=== PATIENT | male | born 1960 | race Caucasian/White ===

== ENCOUNTER → 2016-09-21 | Outpatient (REF) | payer BC ==
[~2016-09-21] MED LIST: BENZ200C44 PO; GLUC500T53 PO; GUAISYP9 PO; LEVA1.25 INH; PRAV1TAB39 PO; PRED10PA PO; PRED20TA PO; PROA1AER INH; VITA500T3 PO
[2016-09-21 12:10] LABS: MEAN CORPUSCULAR HEMOGLOBIN 32.4 pg (27.0-33.0); MEAN CORPUSCULAR HGB CONC 33.7 g/dl (32.0-36.5); MEAN CORPUSCULAR VOLUME 96.2 fl (80.0-96.0); RED CELL DISTRIBUTION WIDTH 12.2 % (11.5-14.5); WHITE BLOOD COUNT 4.7 K/mm3 (4.0-10.0)
[2016-09-21 12:30] LABS: ALBUMIN 3.6 GM/DL (3.2-5.2); ALBUMIN/GLOBULIN RATIO 1.13 (1.00-1.93); ALKALINE PHOSPHATASE 69 U/L (45-117); ALT/SGPT 35 U/L (12-78); ANION GAP 6 MEQ/L (8-16); AST/SGOT 18 U/L (15-37); BILIRUBIN,TOTAL 0.6 MG/DL (0.2-1.0); BLOOD UREA NITROGEN 15 MG/DL (7-18); CALCIUM LEVEL 9.1 MG/DL (8.5-10.1); CARBON DIOXIDE LEVEL 29 MEQ/L (21-32); CHLORIDE LEVEL 106 MEQ/L (98-107); CHOLESTEROL LEVEL 155 MG/DL (<200); CREATININE FOR GFR 1.01 MG/DL (0.70-1.30); FREE T4 1.04 NG/DL (0.76-1.46); GLOMERULAR FILTRATION RATE > 60.0 (>56); GLUCOSE, FASTING 100 MG/DL (70-105); POTASSIUM SERUM 4.7 MEQ/L (3.5-5.1); SODIUM LEVEL 141 MEQ/L (136-145); TOTAL PROTEIN 6.8 GM/DL (6.4-8.2); TRIGLYCERIDES LEVEL 80 MG/DL (<150)
== END ==
LOC: M LABDRAW1 11:15
PROVIDERS: ATTEND Family Medicine
DX: E78.5 Hyperlipidemia, unspecified (principal); Z86.711 Personal history of pulmonary embolism

== ENCOUNTER → 2016-10-19 | Outpatient (REF) | payer BC | LOC: M LABDRAW1 11:45 | PROVIDERS: ATTEND Internal Medicine Cardiovascular Disease | DX: R06.02 Shortness of breath (principal) ==

== ENCOUNTER → 2017-07-27 | Outpatient (REF) | payer BC ==
[2017-07-27 10:09] LABS: HEMATOCRIT 46.5 % (42.0-52.0); HEMOGLOBIN 15.6 g/dl (14.0-18.0); MEAN CORPUSCULAR HEMOGLOBIN 31.5 pg (27.0-33.0); MEAN CORPUSCULAR HGB CONC 33.5 g/dl (32.0-36.5); MEAN CORPUSCULAR VOLUME 93.8 fl (80.0-96.0); PLATELET COUNT, AUTOMATED 250 10^3/uL (150-450); RED BLOOD COUNT 4.96 10^6/uL (4.30-6.10); RED CELL DISTRIBUTION WIDTH 11.9 % (11.5-14.5); WHITE BLOOD COUNT 5.1 10^3/uL (4.0-10.0)
[2017-07-27 10:50] LABS: ALBUMIN 3.8 GM/DL (3.2-5.2); ALBUMIN/GLOBULIN RATIO 1.12 (1.00-1.93); ALKALINE PHOSPHATASE 77 U/L (45-117); ALT/SGPT 42 U/L (12-78); ANION GAP 7 MEQ/L (8-16); AST/SGOT 14 U/L (7-37); BILIRUBIN,TOTAL 0.5 MG/DL (0.2-1.0); BLOOD UREA NITROGEN 18 MG/DL (7-18); CALCIUM LEVEL 8.9 MG/DL (8.5-10.1); CARBON DIOXIDE LEVEL 28 MEQ/L (21-32); CHLORIDE LEVEL 107 MEQ/L (98-107); CHOLESTEROL LEVEL 146 MG/DL (<200); CHOLESTEROL RISK RATIO 3.244 (<5); CPK CREATINE PHOSPHOKINASE 45 U/L (39-308); CREATININE FOR GFR 0.98 MG/DL (0.70-1.30); FREE T4 0.94 NG/DL (0.76-1.46); GLOMERULAR FILTRATION RATE > 60.0 (>56); GLUCOSE, FASTING 102 MG/DL (70-100); HDL CHOLESTEROL 45 MG/DL (>40); LDL CHOLESTEROL 86.8 MG/DL (<100); NON-HDL-C 101 MG/DL; POTASSIUM SERUM 4.7 MEQ/L (3.5-5.1); SODIUM LEVEL 142 MEQ/L (136-145); TOTAL PROTEIN 7.2 GM/DL (6.4-8.2); TRIGLYCERIDES LEVEL 71 MG/DL (<150)
== END ==
LOC: M LABDRAW1 09:42
DX: E78.5 Hyperlipidemia, unspecified (principal); Z86.711 Personal history of pulmonary embolism
CPT/HCPCS: 82550

== ENCOUNTER → 2018-03-06 | Outpatient (REF) | payer BC ==
[2018-03-06 12:30] LABS: ALBUMIN 3.7 GM/DL (3.2-5.2); ALBUMIN/GLOBULIN RATIO 1.09 (1.00-1.93); ALKALINE PHOSPHATASE 67 U/L (45-117); ALT/SGPT 37 U/L (12-78); ANION GAP 7 MEQ/L (8-16); AST/SGOT 19 U/L (7-37); BILIRUBIN,TOTAL 0.6 MG/DL (0.2-1.0); BLOOD UREA NITROGEN 17 MG/DL (7-18); CALCIUM LEVEL 8.8 MG/DL (8.5-10.1); CARBON DIOXIDE LEVEL 28 MEQ/L (21-32); CHLORIDE LEVEL 106 MEQ/L (98-107); CHOLESTEROL LEVEL 166 MG/DL (<200); CHOLESTEROL RISK RATIO 4.048 (<5); CREATININE FOR GFR 0.99 MG/DL (0.70-1.30); GLOMERULAR FILTRATION RATE > 60.0 (>56); GLUCOSE, FASTING 99 MG/DL (70-100); HDL CHOLESTEROL 41 MG/DL (>40); IRON (FE) 118 UG/DL (65-175); LDL CHOLESTEROL 102 MG/DL (<100); MAGNESIUM LEVEL 2.2 MG/DL (1.8-2.4); NON-HDL-C 125 MG/DL; POTASSIUM SERUM 4.5 MEQ/L (3.5-5.1); SODIUM LEVEL 141 MEQ/L (136-145); TOTAL PROTEIN 7.1 GM/DL (6.4-8.2); TRIGLYCERIDES LEVEL 113 MG/DL (<150)
[2018-03-06 12:36] LABS: ESTIMATED AVERAGE GLUCOSE 111 MG/DL (60-110); HEMOGLOBIN A1c 5.5 %
[2018-03-06 12:50] LABS: HEMATOCRIT 44.2 % (42.0-52.0); HEMOGLOBIN 14.8 g/dl (13.5-17.5); MEAN CORPUSCULAR HGB CONC 33.5 g/dl (32.0-36.5); MEAN CORPUSCULAR VOLUME 95.7 fl (80.0-96.0); PLATELET COUNT, AUTOMATED 216 10^3/uL (150-450); RED BLOOD COUNT 4.62 10^6/uL (4.30-6.10); WHITE BLOOD COUNT 4.9 10^3/uL (4.0-10.0)
[2018-03-06 13:14] LABS: APPEARANCE, URINE HAZY (CLEAR); BACTERIA, URINE AUTO NEGATIVE (NEGATIVE); BILIRUBIN, URINE AUTO NEGATIVE (NEGATIVE); BLOOD, URINE BLOOD 1+ (NEGATIVE); COLOR, URINE YELLOW (YELLOW); GLUCOSE, URINE (UA) AUTO NEGATIVE (NEGATIVE); KETONE, URINE AUTO NEGATIVE (NEGATIVE); LEUKOCYTE ESTERASE, URINE AUTO NEGATIVE (NEGATIVE); MUCUS, URINE SMALL (NEGATIVE); NITRITE, URINE AUTO NEGATIVE (NEGATIVE); PROTEIN, URINE AUTO NEGATIVE (NEGATIVE); RBC, URINE AUTO 1 /HPF (0-3); SPECIFIC GRAVITY URINE AUTO 1.025 (1.002-1.035); SQUAMOUS EPITHELIAL CELL UR AU 0 /HPF (0-6); UROBILINOGEN, URINE AUTO 0.2 mg/dL (0.0-2.0); WBC, URINE AUTO 1 /HPF (0-3)
[2018-03-06 13:45] LABS: ERYTHROCYTE SEDIMENTATION RATE 12 mm/hr (0-20)
[2018-03-08 00:08] LABS: PSA % FREE 16.8 % (.); PSA FREE 0.79 ng/mL; PSA TOTAL 4.7 ng/mL (0.0-4.0)
== END ==
LOC: M LABDRAW1 09:37
DX: E78.5 Hyperlipidemia, unspecified (principal); K75.81 Nonalcoholic steatohepatitis (NASH); G43.009 Migraine without aura, not intractable, without status migrainosus
CPT/HCPCS: 83540

== ENCOUNTER → 2018-06-15 | Outpatient (REF) | payer BC ==
[~2018-06-15] MED LIST changes: -BENZ200C44 PO; +BENZ200C70 PO; -PROA1AER INH; +PROAAER10 INH
[2018-06-15 13:27] LABS: HEMATOCRIT 45.1 % (42.0-52.0); HEMOGLOBIN 15.3 g/dl (13.5-17.5); MEAN CORPUSCULAR HEMOGLOBIN 32.5 pg (27.0-33.0); MEAN CORPUSCULAR HGB CONC 33.9 g/dl (32.0-36.5); MEAN CORPUSCULAR VOLUME 95.8 fl (80.0-96.0); PLATELET COUNT, AUTOMATED 208 10^3/uL (150-450); RED BLOOD COUNT 4.71 10^6/uL (4.30-6.10); WHITE BLOOD COUNT 5.2 10^3/uL (4.0-10.0)
[2018-06-15 13:31] LABS: APPEARANCE, URINE CLEAR (CLEAR); BACTERIA, URINE AUTO NEGATIVE (NEGATIVE); BILIRUBIN, URINE AUTO NEGATIVE (NEGATIVE); BLOOD, URINE BLOOD NEGATIVE (NEGATIVE); COLOR, URINE YELLOW (YELLOW); GLUCOSE, URINE (UA) AUTO NEGATIVE (NEGATIVE); KETONE, URINE AUTO NEGATIVE (NEGATIVE); LEUKOCYTE ESTERASE, URINE AUTO NEGATIVE (NEGATIVE); MUCUS, URINE SMALL (NEGATIVE); NITRITE, URINE AUTO NEGATIVE (NEGATIVE); PROTEIN, URINE AUTO NEGATIVE (NEGATIVE); RBC, URINE AUTO 0 /HPF (0-3); SPECIFIC GRAVITY URINE AUTO 1.024 (1.002-1.035); SQUAMOUS EPITHELIAL CELL UR AU 0 /HPF (0-6); UROBILINOGEN, URINE AUTO 0.2 mg/dL (0.0-2.0); WBC, URINE AUTO 2 /HPF (0-3)
[2018-06-15 13:39] LABS: ALBUMIN 3.7 GM/DL (3.2-5.2); ALT/SGPT 40 U/L (12-78); BILIRUBIN,TOTAL 0.5 MG/DL (0.2-1.0); BLOOD UREA NITROGEN 17 MG/DL (7-18); CALCIUM LEVEL 8.8 MG/DL (8.5-10.1); CARBON DIOXIDE LEVEL 28 MEQ/L (21-32); CHLORIDE LEVEL 107 MEQ/L (98-107); CHOLESTEROL LEVEL 164 MG/DL (<200); CHOLESTEROL RISK RATIO 3.565 (<5); CREATININE FOR GFR 1.02 MG/DL (0.70-1.30); GLOMERULAR FILTRATION RATE > 60.0 (>56); GLUCOSE, FASTING 103 MG/DL (70-100); HDL CHOLESTEROL 46 MG/DL (>40); IRON (FE) 104 UG/DL (65-175); LDL CHOLESTEROL 98 MG/DL (<100); MAGNESIUM LEVEL 2.1 MG/DL (1.8-2.4); NON-HDL-C 118 MG/DL; POTASSIUM SERUM 4.4 MEQ/L (3.5-5.1); SODIUM LEVEL 141 MEQ/L (136-145); TOTAL PROTEIN 6.9 GM/DL (6.4-8.2); TRIGLYCERIDES LEVEL 98 MG/DL (<150)
[2018-06-15 14:12] LABS: ERYTHROCYTE SEDIMENTATION RATE 6 mm/hr (0-20)
[2018-06-17 00:45] LABS: PSA % FREE 16.5 % (.); PSA FREE 0.76 ng/mL; PSA TOTAL 4.6 ng/mL (0.0-4.0)
== END ==
LOC: M LABDRAW1 12:22 → M LAB REF 12:22
PROVIDERS: ATTEND Family Medicine
DX: E78.5 Hyperlipidemia, unspecified (principal); K75.81 Nonalcoholic steatohepatitis (NASH); G43.009 Migraine without aura, not intractable, without status migrainosus

== ENCOUNTER → 2018-08-08 | Outpatient (REF) | payer BC ==
[2018-08-09 19:36] LABS: PSA % FREE 15.2 % (.); PSA FREE 0.64 ng/mL; PSA TOTAL 4.2 ng/mL (0.0-4.0)
== END ==
LOC: M LABDRAW1 09:00
PROVIDERS: ATTEND Specialist
DX: R97.20 Elevated prostate specific antigen [PSA] (principal)

== ENCOUNTER → 2018-12-05 | Outpatient (REF) | payer BC ==
[2018-12-05 10:06] LABS: HEMATOCRIT 43.9 % (42.0-52.0); MEAN CORPUSCULAR HEMOGLOBIN 33.5 pg (27.0-33.0); MEAN CORPUSCULAR HGB CONC 34.2 g/dl (32.0-36.5); PLATELET COUNT, AUTOMATED 201 10^3/uL (150-450); RED BLOOD COUNT 4.48 10^6/uL (4.30-6.10); WHITE BLOOD COUNT 4.2 10^3/uL (4.0-10.0)
[2018-12-05 10:19] LABS: ALBUMIN 3.7 GM/DL (3.2-5.2); ALT/SGPT 34 U/L (12-78); BILIRUBIN,TOTAL 0.6 MG/DL (0.2-1.0); BLOOD UREA NITROGEN 21 MG/DL (7-18); CALCIUM LEVEL 9.1 MG/DL (8.5-10.1); CARBON DIOXIDE LEVEL 29 MEQ/L (21-32); CHLORIDE LEVEL 108 MEQ/L (98-107); CHOLESTEROL LEVEL 143 MG/DL (<200); CHOLESTEROL RISK RATIO 3.042 (<5); CREATININE FOR GFR 0.89 MG/DL (0.70-1.30); GLOMERULAR FILTRATION RATE > 60.0 (>56); GLUCOSE, FASTING 102 MG/DL (70-100); HDL CHOLESTEROL 47 MG/DL (>40); LDL CHOLESTEROL 78 MG/DL (<100); MAGNESIUM LEVEL 2.3 MG/DL (1.8-2.4); NON-HDL-C 96 MG/DL; POTASSIUM SERUM 4.4 MEQ/L (3.5-5.1); SODIUM LEVEL 140 MEQ/L (136-145); TRIGLYCERIDES LEVEL 90 MG/DL (<150)
[2018-12-05 10:20] LABS: APPEARANCE, URINE CLEAR (CLEAR); BACTERIA, URINE AUTO NEGATIVE (NEGATIVE); BILIRUBIN, URINE AUTO NEGATIVE (NEGATIVE); BLOOD, URINE BLOOD NEGATIVE (NEGATIVE); COLOR, URINE YELLOW (YELLOW); GLUCOSE, URINE (UA) AUTO NEGATIVE (NEGATIVE); KETONE, URINE AUTO NEGATIVE (NEGATIVE); LEUKOCYTE ESTERASE, URINE AUTO NEGATIVE (NEGATIVE); MUCUS, URINE SMALL (NEGATIVE); NITRITE, URINE AUTO NEGATIVE (NEGATIVE); PROTEIN, URINE AUTO NEGATIVE (NEGATIVE); RBC, URINE AUTO 1 /HPF (0-3); SQUAMOUS EPITHELIAL CELL UR AU 0 /HPF (0-6); UROBILINOGEN, URINE AUTO 0.2 mg/dL (0.0-2.0); WBC, URINE AUTO 1 /HPF (0-3)
== END ==
LOC: M LABDRAW1 09:34
PROVIDERS: ATTEND Family Medicine
DX: E78.5 Hyperlipidemia, unspecified (principal); G43.009 Migraine without aura, not intractable, without status migrainosus

== ENCOUNTER → 2018-12-27 | Outpatient (REF) | payer BC ==
[~2018-12-27] MED LIST changes: +CYAN500T8 PO; -VITA500T3 PO
[2018-12-30 00:06] LABS: PSA % FREE 13.5 % (.); PSA FREE 0.65 ng/mL; PSA TOTAL 4.8 ng/mL (0.0-4.0)
== END ==
LOC: M LABDRAW1 13:17
PROVIDERS: ATTEND Family Medicine
DX: E78.5 Hyperlipidemia, unspecified (principal)

== ENCOUNTER → 2019-08-14 | Outpatient (REF) | payer BC ==
[~2019-08-14] MED LIST changes: +ASPI81TA85 PO; +MAGN400C PO; +PAME10CA PO; +RIZA10TA2 PO
== END ==
LOC: M LABDRAW1 10:06
PROVIDERS: ATTEND Physician Assistant
DX: R97.20 Elevated prostate specific antigen [PSA] (principal)

== ENCOUNTER 2019-08-24 07:47 | Day surgery (SDC) | payer BC ==
[~2019-08-24] VITALS: Ht 182.9 cm; Wt 115.2 kg
[~2019-08-24 07:47] MED LIST changes: +NS 1,000 ML IV ONE
[2019-08-24] MEDS ORDERED: propofoL 200 MG/20 ML VIAL As Ordered ONE (08:24)
[2019-08-24] MEDS ORDERED: LIDOCAINE 2% INJ 100 MG/5 ML SDV (FOR ANES.) As Ordered ONE (08:24)
--- NOTE | 2019-08-24 09:33 | ROOR ---
Patient Name: Allan Travis Procedure Date: 08/24/2019 9:12 AM Date of : 1960 Age: 59 Room: [facility] Gender: Male Note Status: Finalized Procedure: Colonoscopy Indications: High risk colon cancer surveillance: Personal history of colonic polyps, Last colonoscopy: May 2016, Family history of colon cancer in a first-degree relative Providers: Jonathan LU MD Referring MD: LEE SONI MD Requesting Provider: Medicines: Monitored Anesthesia Care Complications: No immediate complications. Procedure: Pre-Anesthesia Assessment: - The heart rate, respiratory rate, oxygen saturations, blood pressure, adequacy of pulmonary ventilation, and response to care were monitored throughout the procedure. The Colonoscope was introduced through the anus and advanced to the cecum, identified by appendiceal orifice and ileocecal valve. The colonoscopy was performed without difficulty. The patient tolerated the procedure well. The quality of the bowel preparation was good. Findings: The perianal and digital rectal examinations were normal. Small Internal Hemorrhoids. The entire examined colon appeared normal on direct and retroflexion views. Impression: - Small Internal Hemorrhoids. - The entire colon is normal on direct and retroflexion views. - No specimens collected. Recommendation: - Repeat colonoscopy in 5 years for surveillance. - Return to referring physician as previously scheduled. Jonathan Lu MD Jonathan LU MD 08/24/2019 9:33:31 AM Electronically signed by Jonathan LU MD Number of Addenda: 0 Note Initiated On: 08/24/2019 9:12 AM Estimated Blood Loss: Estimated blood loss: none.
[2019-08-24 09:55] VITALS: BP 128/93
== END 2019-08-24 09:59 | disposition home or self-care (01) ==
LOC: M OPP 07:47
PROVIDERS: ATTEND Internal Medicine Gastroenterology
DX: Z12.11 Encounter for screening for malignant neoplasm of colon (principal); Z86.010 Personal history of colon polyps; Z80.0 Family history of malignant neoplasm of digestive organs; K64.8 Other hemorrhoids; Z79.82 Long term (current) use of aspirin; Z79.899 Other long term (current) drug therapy

== ENCOUNTER → 2019-11-13 | Outpatient (CLI) | payer BC ==
[~2019-11-13] MED LIST changes: +CENTTAB16 PO; -NS 1,000 ML IV ONE; +PROBCAP14 PO
--- NOTE | 2019-11-19 13:23 | RADONC ---
RADIATION ONCOLOGY CONSULTATION NOTE DATE: 11/13/2019 This is a telemedicine visit. The patient was informed of the risks including security breech, technological failure, inability to perform a comprehensive physical exam which could delay or prevent an accurate diagnosis, and potential complications from treatment decisions rendered over a telemedicine platform. The patient understands and consented to the use of telehealth services phone only. CHART #: [id number] DIAGNOSIS: Prostate cancer. STAGE: I, T1c, NO, M0, Danville score 6 (3-3) grade group 1, initial PSA 7.15. ECOG PERFORMANCE STATUS: 0. CONSULTATION NOTE: Mr. Travis is a very pleasant 59-year-old white male with the diagnosis of what appears to be a stage I, T1c, N0, M0, moderately differentiated Rodolfo score 6 (3-3) adenocarcinoma of the prostate, grade group 1, with initial PSA of 7.15 who is presenting to us today for discussion of his therapeutic options including external beam radiation therapy with IMRT/IGRT. HISTORY OF PRESENT ILLNESS: The patient was in his usual state of health, but routine PSA was done on 08/14/2019 which was found to be 7.15. On 10/19/2019, the patient underwent prostate needle biopsy and a small adenocarcinoma, Danville score 6 (3-3) was found in less than 5% (0.6 mm in length) of one core. This was on the left lateral apex biopsy. A second biopsy in the left apex also showed a Rodolfo score of 6 (3-3) adenocarcinoma involving 5% or 1 mm in length of the one core. All other specimens were negative for malignancy. The patient is presenting to me today for discussion of possible external beam radiation therapy. He is scheduled to be seen by an urological surgeon and then will return to Dr. Jordan Yuan for final discussion and decision on his therapeutic options. PAST MEDICAL HISTORY: The patient's past medical history is positive for chronic low back pain. He has a history of C diff in 2018. He had a DVT with a pulmonary embolism in 2016. He has hypercholesterolemia as well as hyperlipidemia. He has occasional headaches and an umbilical hernia. The patient has had a tonsillectomy, a vasectomy and LASIK surgery. ALLERGIES: The patient has NO KNOWN DRUG ALLERGIES. SOCIAL HISTORY: The patient does not smoke cigarettes. He drinks alcohol socially. FAMILY HISTORY: The patient's family history is positive for a father with throat and colon cancer and a paternal uncle with prostate cancer. REVIEW OF SYSTEMS: The patient's review of systems is noncontributory. Denies nausea, vomiting, fevers, chills, night sweats, diplopia, headaches, anxiety or depression, anorexia, weight loss, visual disturbances, chest pain, urinary or bowel difficulties, bone pain, or neurological problems. PHYSICAL EXAMINATION: Physical examination was deferred at this time as per COVID-19 precautions. This was a telephone consultation. MEDICAL NECESSITY: IMRT/IGRT is clinically indicated for the highly conformal dose planning required. The target volume is in close proximity to critical structures, such as the rectum, bladder, small bowel, and femoral heads. The volume of interest must be covered with narrow margins to adequately protect immediately adjacent structures. The plan requires interpretation of complex testing such as CT localization. As noted above, special planning (IMRT) and localizing (IGRT) is required and essential to maximally protect sensitive normal tissue structures which cannot be accomplished using conventional 3-dimensional planning. ASSESSMENT: I do believe that this patient is a candidate for external beam radiation therapy and I have so informed him. I have discussed with the patient in detail the potential benefits as well as possible acute and chronic sequelae of external beam radiation therapy. We have discussed logistics of treatment planning, simulation and subsequent fractionated daily radiation treatments. I discussed in detail as well true potential benefits and drawbacks of each of his treatment modalities including external beam radiation therapy as well as surgery and brachytherapy. The patient is leaning toward surgery at this point and I have not scheduled him therefore for any followup for initiation of treatment planning. As mentioned above, the patient will be seen by his urology surgeon and then return to Dr. Yuan for further discussion. I have given the patient a list of several web sites for further education and have let him know that clearly there is no perkins to jump in and treat this in the next few weeks. He can calmly with his and family make a decision and we will support whichever way he decides. I let him know that both external beam radiation therapy with IMRT as well as surgery are quite legitimate treatments and he should do well whichever he chooses. Thank you for allowing us to participate in the care of this very pleasant gentleman. If I could be of any further assistance or provide you any information, please feel free to contact me at anytime. As always warm regards. cc: MD Williams Bell MD
== END ==
LOC: M ONCR 13:03
PROVIDERS: ATTEND Radiology Radiation Oncology
DX: C61 Malignant neoplasm of prostate (principal)

== ENCOUNTER → 2020-07-31 | Outpatient (CLI) | payer BC ==
[~2020-07-31] MED LIST changes: -ASPI81TA85 PO; +ASPI81TA86 PO; +CYAN500T14 PO; -CYAN500T8 PO
--- NOTE | 2020-08-03 23:24 | ECWPNPC ---
PATIENT NAME: SHANNA ROSE : 1960 GENDER: MALE VISIT DATE: 07/31/2020 DISCHARGE DATE: 07/31/20927 VISIT LOCKED DATE TIME: PHYSICIAN: LUZ MARINA ROSE RESOURCE: LUZ MARINA ROSE REASON FOR APPOINTMENT 1. LUMBAR FACET INJECTIONS HISTORY OF PRESENT ILLNESS DEPRESSION SCREENING: PHQ-2 (2015 EDITION) LITTLE INTEREST OR PLEASURE IN DOING THINGS?NOT AT ALL FEELING DOWN, DEPRESSED, OR HOPELESS?NOT AT ALL TOTAL SCORE0 GENERAL: PLEASANT 60-YEAR-OLD GENTLEMAN BEING REFERRED BY [facility] BOB TO EVALUATE CHRONIC LOW BACK PAIN. REPORTS LONG HISTORY OF INTERMITTENT BACK PAIN EPISODES OVER THE YEARS. 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 HAD RECENT FLAREUP IN APRIL AFTER REACHING FOR HIS KEYS ON THE GROUND. EVENTUALLY HE SOUGHT EMERGENCY ROOM TREATMENT BECAUSE HE STARTED TO HAVE RIGHT LEG PAIN. THEY TREATED HIM IN JUNE 2020 WITH STEROID MEDICATION AND GABAPENTIN. REPORTS RELIEF AFTER A FEW WEEKS OF TREATMENT. NOW HE IS EXPERIENCING MAINLY STIFFNESS IN HIS LOWER BACK AREA. REVIEWED MRI IMAGING OF THE LUMBOSACRAL SPINE. SHOWING MULTILEVEL DISC PROTRUSION AND NEURAL FORAMINAL IMPINGEMENT MOST NOTABLE AT L3-4 AND L4-5. ALSO SHOWING MODERATE FACET ARTHROPATHY AT THESE 2 LEVELS. DENIES ONSET OF BOWEL OR BLADDER INCONTINENCE. DENIES RECENT ILLNESS OR WEIGHT LOSS. DISCUSSED TREATMENT OPTIONS.-. FALL RISK SCREENING: SCREENING :NO FALLS REPORTED IN THE LAST YEAR PAIN SCREENING: PATIENT HAS A COMPLAINT OF ACUTE OR CHRONIC PAIN :YES LOCATION OF PAIN:LOW BACK, RIGHT HIP, THIGH(S), KNEES INTENSITY OF PAIN (SCALE OF 1 TO 10):1 WHAT DOES YOUR PAIN FEEL LIKE:SHOOTING, OTHER STIFF DURATION:PERIODIC, INTERMITTENT PAIN IS INCREASED BY:ACTIVITIES, PROLONGED STANDING, OTHERS BENDING, LIFTING PAIN IS DECREASED BY:USE OF PAIN MEDICATIONS, OTHERS HOT TUB HELPS BRIEFLY, ICE NURSING NOTE: -. PAIN CENTER INTAKE QUESTIONS: DO YOU HAVE A HISTORY OF MRSA? :NO DO YOU TAKE A BLOOD THINNERS? :NO ASPIRIN 81 MG DO YOU HAVE ANY BLEEDING DISORDERS? :NO ANY NEW NUMBNESS OR WEAKNESS IN YOUR LEGS OR ARMS? :NO ANY PACEMAKER,DEFIBRILLATOR, OR DORSAL COLUMN STIMULATOR? :NO DO YOU HAVE ANY RASHES OR OPEN SORES? :NO ARE YOU ALLERGIC TO IV DYE? :NO ARE YOU DIABETIC? :NO ANY NEW PROBLEMS WITH YOUR MEDICATIONS? :NO HAVE YOU RECEIVED A VACCINE IN THE PAST 30 DAYS? :NO DO YOU PLAN TO RECEIVE A VACCINE IN THE NEXT 21 DAYS? :YES IF SO WHAT VACCINE AND WHEN? WOULD LIKE THE COVID VACCINATION WHEN IT BECOMES AVAILABLE. DO YOU NEED ANY PRESCRIPTION? :NO DO YOU TAKE ANY IMMUNOSUPPRESSIVE MEDICATIONS? :NO IS THERE A CHANCE YOU COULD BE ? :NO ARE YOU BREAST FEEDING? :NO CURRENT MEDICATIONS TAKING CENTRUM SILVER - TABLET 1 TAB ORALLY EVERY DAY TAKING GABAPENTIN 100 MG CAPSULE 1 CAPSULE ORALLY THREE TIMES DAILY TAKING IBUPROFEN 200 MG TABLET 1 TABLET WITH FOOD OR MILK NEEDED ORALLY THREE TIMES A DAY TAKING NORTRIPTYLINE HCL 25 MG CAPSULE 1 CAPSULE ORALLY ONCE A DAY TAKING PRAVASTATIN SODIUM 20 MG TABLET 1 TABLET ORALLY ONCE A DAY TAKING PROBIOMAX DAILY DF - CAPSULE DIRECTED ORALLY 1 DAILY TAKING RIZATRIPTAN BENZOATE 10 MG TABLET 1 TABLET ORALLY ONCE A DAY TAKING SILDENAFIL CITRATE 50 MG TABLET 1 TABLET NEEDED ORALLY ONCE A DAY TAKING ASPIRIN ADULT LOW STRENGTH 81 MG TABLET DELAYED RELEASE 1 TABLET ORALLY ONCE A DAY TAKING GLUCOSAMINE CHONDROITIN JOINT - TABLET DIRECTED ORALLY NOT-TAKING MAGNESIUM OXIDE 400 MG TABLET 1 TABLET NEEDED ORALLY ONCE A DAY MEDICATION LIST REVIEWED AND RECONCILED WITH THE PATIENT PAST MEDICAL HISTORY LOW BACK PAIN HIGH CHOLESTEROL PULMONARY EMBOLISM ALLERGIES N.K.D.A. SURGICAL HISTORY TONSILLECTOMY 1970 VASECTOMY 2002 LASIK 2002 COLONOSCOPY 01/2020 FAMILY HISTORY FATHER: , DIAGNOSED WITH OTHER SPECIFIED CONDITIONS INFLUENCING HEALTH STATUS FATHER TO THROAT, COLON, LIVER, STOMACH CANCER. SOCIAL HISTORY GENERAL: TOBACCO USE ARE YOU A:NONSMOKER LATEX QUESTIONNAIRE LATEX ALLERGY : HAVE YOU EVER DEVELOPED ANY TYPE OF REACTION AFTER HANDLING LATEX PRODUCTS SUCH RUBBER GLOVES, CONDOMS, DIAPHRAGMS, BALLOONS, SOCKS, OR UNDERWEAR?NO LATEX ALLERGY : HAVE YOU EVER DEVELOPED ANY TYPE OF REACTION DURING OR AFTER DENTAL APPOINTMENT, VAGINAL/RECTAL EXAMINATION, SURGICAL PROCEDURE, OR ANY OTHER EXPOSURE?NO LATEX RISK : HAVE YOU EVER HAD ANY DIFFICULTY BREATHING OR HIVES AFTER EATING OR HANDLING ANY FRUITS, OR VEGETABLES; SUCH KIWI, BANANAS, STONE FRUITS, OR CHESTNUTSNO LATEX RISK : DO YOU HAVE A PREVIOUS PERSONAL HISTORY OF MORE THAN NINE SURGERIES, SPINA BIFIDA, OR REPEATED CATHERIZATIONS? NO LATEX RISK : ARE YOU FREQUENTLY EXPOSED TO LATEX PRODUCTS IN YOUR OCCUPATION?NO DATE ASKED : 07/31/2020 ALCOHOL USE: YES, VERY RARE MAYBE 2 A YEAR. RECREATIONAL DRUG USE DRUG USE?NO LANGUAGE LANGUAGES SPOKEN:SCOTTISH LEARNING BARRIERS / SPECIAL NEEDS BARRIERS TO LEARNING?NO HEARING IMPAIRED?YES :HEARING AIDES BILATERAL HEARING AIDES VISION IMPAIRED?YES COGNITIVELY IMPAIRED?NO READINESS TO LEARN?YES LEARNING PREFERENCES?NO LEARNING CAPABILITIES PRESENT?YES EMOTIONAL BARRIERS?NO SPECIAL DEVICES?NO SALES AND SERVICE SPECIALIST NEEDED?NO HOSPITALIZATION/MAJOR DIAGNOSTIC PROCEDURE SEE ABOVE REVIEW OF SYSTEMS CONSTITUTIONAL: ANY RECENT FEVER NO . CHILLS NO . WEIGHT CHANGE OF UNKNOWN REASONS NO . GASTROENTEROLOGY: NEW UNEXPLAINABLE CHANGES IN BOWEL CONTROL NO . CONSTIPATION NO . GENITOURINARY: ANY NEW CHANGE IN BLADDER CONTROL? NO . NEUROLOGY: NEW ONSET DIZZINESS OR NEUROLOGICAL CHANGES NOT MENTIONED NO . NEW NUMBNESS OR PAIN PATTERNS NOT MENTIONED AND PERTINENT TO TODAY'S VISIT NO . CARDIOLOGY: NEW CHEST PRESSURE NO . NEW CHEST PAIN NO . RESPIRATORY: UNEXPLAINABLE COUGH NO . NEW SHORTNESS OF BREATH NO . VITAL SIGNS WT 270.2 LBS, HT 70 IN, BMI 38.77 INDEX, BP 124/75 MM HG, HR 78 /MIN, RR 18 /MIN, TEMP 96.0 F, OXYGEN SAT % 99%, SAFE IN ENV? (Y/N) YES, NA INITIALS AW 0832, REVIEWED BY: ELOY JOSE MA. EXAMINATION GENERAL EXAMINATION: GENERALNO ACUTE DISTRESS, WELL NOURISHED AND HYDRATED. PSYCHAPPROPRIATE MOOD AND AFFECT . NECK:NO LYMPHADENOPATHY, SUPPLE, . LUNGS:CLEAR TO AUSCULTATION BILATERALLY, NO WHEEZES, RHONCHI, RALES. HEART:NO MURMURS, REGULAR RATE AND RHYTHM. MUSCULOSKELETAL:NORMAL RANGE OF MOTION. MUSCLE STRENGTH TESTING 5/5 BILATERAL LOWER EXTREMITIES. LUMBAR: PALPATION: NEGATIVE FOR PAIN OVER L/S SPINE. NEGATIVE FOR PAIN OVER L/S PARSPINALS. NEUROLOGIC EXAM:NORMAL SENSATION LOWER EXTREMITIES BILATERALLY . DIAGNOSTIC TESTS REVIEWEDMRI L/S SPINE 07/08/2020 . 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 ADVISED TO WALK 10 MINUTES EVERY OTHER DAY ON A FLAT SURFACE. EMPHASIZED THE IMPORTANCE OF DOING THIS CONSISTANTLY AND NOT SPORATICALLY TO AVOID INJURY. RECOMMEND LUMBAR STRETCHING EXERCISES TWICE A DAY. CLINICAL NOTES: 07/31/2020 PREPROCEDURE AND PROCEDURE INFORMATION PROVIDED TO PATIENT. PATIENT VERBALIZED UNDERSTANDING. KAMILAH JOSE MA. OTHERS NOTES: STRETCHING EXERCISES MATERIAL WAS PRINTED. PROCEDURE CODES FA211 ESTABILISHED PATIENT [facility] CHARGE DISPOSITION & COMMUNICATION FOLLOW UP POSTPROCEDURE (REASON: LUMBAR EPIDURAL STEROID INJECTION L4-5) ELECTRONICALLY SIGNED BY DANIELE FLORES ON 08/03/2020 AT 08:09 PM EST DISCLAIMER : THIS IS A VISIT SUMMARY EXTRACTED FROM THE [employer] CHART. IT IS NOT A COPY OF THE [employer] PROGRESS NOTE. AVA
== END ==
LOC: M PAIN 08:30
PROVIDERS: ATTEND Nurse Practitioner Family
DX: M51.16 Intervertebral disc disorders with radiculopathy, lumbar region (principal); E78.00 Pure hypercholesterolemia, unspecified; Z86.711 Personal history of pulmonary embolism; Z79.82 Long term (current) use of aspirin; Z79.899 Other long term (current) drug therapy

== ENCOUNTER → 2020-08-06 | Outpatient (CLI) | payer BC | LOC: M LABSMTC 09:50 | PROVIDERS: ATTEND Anesthesiology | DX: Z20.822 Contact with and (suspected) exposure to COVID-19 (principal) ==

== ENCOUNTER → 2020-08-11 | Outpatient (CLI) | payer BC ==
[~2020-08-11] MED LIST changes: +ISOVUE-M 300 61% 15ML VIAL As Ordered ONE; +LIDOCAINE 1% SDV 30ML VIAL As Ordered ONE; +methylPREDNISolone SUSP 40MG/ML 1ML VIAL (DEPO MEDROL) As Ordered ONE
--- NOTE | 2020-08-11 10:59 | REP ---
INDICATION: LESI. COMPARISON: None. TECHNIQUE: Three C-arm views lower lumbar spine performed. FINDINGS: A needle is seen at L4-5 level. A small amount of contrast is injected. IMPRESSION: 7 seconds fluoroscopy time utilized. <Electronically signed by Jaquan Arevalo > 08/11/20 105
--- NOTE | 2020-08-12 00:23 | ECWPNPC ---
PATIENT NAME: SHANNA ROSE : 1960 GENDER: MALE VISIT DATE: 08/11/2020 DISCHARGE DATE: 08/11/20 1022 VISIT LOCKED DATE TIME: PHYSICIAN: TAWANA ROSALES MD RESOURCE: TAWANA ROSALES MD REASON FOR APPOINTMENT 1. LUMBAR EPIDURAL STEROID INJECTION HISTORY OF PRESENT ILLNESS GENERAL: -. FALL RISK SCREENING: SCREENING :NO FALLS REPORTED IN THE LAST YEAR PAIN SCREENING: PATIENT HAS A COMPLAINT OF ACUTE OR CHRONIC PAIN :YES LOCATION OF PAIN: LOW BACK INTENSITY OF PAIN (SCALE OF 1 TO 10):2 WHAT DOES YOUR PAIN FEEL LIKE: "STIFF" DURATION:INTERMITTENT WORSE IN AM, PATIENT REPORTS HAVING TO WALK AROUND IN THE MORNING TO LOOSEN UP. PAIN IS INCREASED BY:ACTIVITIES, PROLONGED STANDING TREATMENT/MEDICATIONS USED TO MANAGE PAIN:OTC PAIN RELIEVERS PLAN/GOALS/TREATMENT/INTERVENTION/FOLLOW UP:SEE PLAN NURSING NOTE: -. PAIN CENTER INTAKE QUESTIONS: DO YOU HAVE A HISTORY OF MRSA? :NO DO YOU TAKE A BLOOD THINNERS? :NO DO YOU HAVE ANY BLEEDING DISORDERS? :NO ANY NEW NUMBNESS OR WEAKNESS IN YOUR LEGS OR ARMS? :NO ANY PACEMAKER,DEFIBRILLATOR, OR DORSAL COLUMN STIMULATOR? :NO DO YOU HAVE ANY RASHES OR OPEN SORES? :NO ARE YOU ALLERGIC TO IV DYE? :NO ARE YOU DIABETIC? :NO ANY NEW PROBLEMS WITH YOUR MEDICATIONS? :NO HAVE YOU RECEIVED A VACCINE IN THE PAST 30 DAYS? :NO DO YOU PLAN TO RECEIVE A VACCINE IN THE NEXT 21 DAYS? :NO DO YOU TAKE ANY IMMUNOSUPPRESSIVE MEDICATIONS? :NO ANY HISTORY OF SEIZURES? :NO ANY HISTORY OF CARDIAC ISSUES OR EVENTS? :NO DO YOU HAVE SLEEP APNEA? :YES DO YOU WEAR A CPAP?YES ANY RECENT HEAD INJURY? :NO DO YOU HAVE ANY NEW INFECTIONS? :NO IS THERE A CHANCE YOU COULD BE ? :NO ARE YOU BREAST FEEDING? :NO WHEN DID YOU LAST EAT? : 08/10/202099 WHEN DID YOU LAST DRINK? : 08/10/202099 WHAT DID YOU LAST DRINK? : WATER NAME OF PERSON DRIVING YOU HOME? : KAROLINE () DO YOU HAVE ANY OTHER QUESTIONS OR CONCERNS? : NO CURRENT MEDICATIONS TAKING CENTRUM SILVER - TABLET 1 TAB ORALLY EVERY DAY TAKING GABAPENTIN 100 MG CAPSULE 1 CAPSULE ORALLY THREE TIMES DAILY, NOTES: 08/10/20 190 TAKING IBUPROFEN 200 MG TABLET 1 TABLET WITH FOOD OR MILK NEEDED ORALLY THREE TIMES A DAY, NOTES: 08/08/20 TAKING NORTRIPTYLINE HCL 25 MG CAPSULE 1 CAPSULE ORALLY ONCE A DAY TAKING PRAVASTATIN SODIUM 20 MG TABLET 1 TABLET ORALLY ONCE A DAY TAKING PROBIOMAX DAILY DF - CAPSULE DIRECTED ORALLY 1 DAILY TAKING RIZATRIPTAN BENZOATE 10 MG TABLET 1 TABLET ORALLY ONCE A DAY, NOTES: MIGRAINES TAKING SILDENAFIL CITRATE 50 MG TABLET 1 TABLET NEEDED ORALLY ONCE A DAY, NOTES: 08/07/20 TAKING ASPIRIN ADULT LOW STRENGTH 81 MG TABLET DELAYED RELEASE 1 TABLET ORALLY ONCE A DAY TAKING GLUCOSAMINE CHONDROITIN JOINT - TABLET DIRECTED ORALLY NOT-TAKING MAGNESIUM OXIDE 400 MG TABLET 1 TABLET NEEDED ORALLY ONCE A DAY MEDICATION LIST REVIEWED AND RECONCILED WITH THE PATIENT PAST MEDICAL HISTORY LOW BACK PAIN HIGH CHOLESTEROL PULMONARY EMBOLISM ALLERGIES N.K.D.A. SOCIAL HISTORY GENERAL: TOBACCO USE ARE YOU A:NONSMOKER LATEX QUESTIONNAIRE LATEX ALLERGY : HAVE YOU EVER DEVELOPED ANY TYPE OF REACTION AFTER HANDLING LATEX PRODUCTS SUCH RUBBER GLOVES, CONDOMS, DIAPHRAGMS, BALLOONS, SOCKS, OR UNDERWEAR?NO LATEX ALLERGY : HAVE YOU EVER DEVELOPED ANY TYPE OF REACTION DURING OR AFTER DENTAL APPOINTMENT, VAGINAL/RECTAL EXAMINATION, SURGICAL PROCEDURE, OR ANY OTHER EXPOSURE?NO LATEX RISK : HAVE YOU EVER HAD ANY DIFFICULTY BREATHING OR HIVES AFTER EATING OR HANDLING ANY FRUITS, OR VEGETABLES; SUCH KIWI, BANANAS, STONE FRUITS, OR CHESTNUTSNO LATEX RISK : DO YOU HAVE A PREVIOUS PERSONAL HISTORY OF MORE THAN NINE SURGERIES, SPINA BIFIDA, OR REPEATED CATHERIZATIONS? NO LATEX RISK : ARE YOU FREQUENTLY EXPOSED TO LATEX PRODUCTS IN YOUR OCCUPATION?NO DATE ASKED : 08/08/2020 ALCOHOL USE: YES, VERY RARE MAYBE 2 A YEAR. RECREATIONAL DRUG USE DRUG USE?NO PENTECOSTALISM PENTECOSTALISM NO HOAHAOISM BELIEFS THAT WOULD IMPACT HEALTH CARE. LANGUAGE LANGUAGES SPOKEN:TONGAN LEARNING BARRIERS / SPECIAL NEEDS BARRIERS TO LEARNING?NO HEARING IMPAIRED?YES :HEARING AIDES BILATERAL HEARING AIDES VISION IMPAIRED?YES COGNITIVELY IMPAIRED?NO READINESS TO LEARN?YES LEARNING PREFERENCES?NO LEARNING CAPABILITIES PRESENT?YES EMOTIONAL BARRIERS?NO SPECIAL DEVICES?NO SKETCH MAKER NEEDED?NO VITAL SIGNS WT 272.0 LBS, HT 70 IN, BMI 39.02 INDEX, BP 139/84 MM HG, HR 75 /MIN, RR 18 /MIN, TEMP 97.5 F, OXYGEN SAT % 95%, SAFE IN ENV? (Y/N) YES, NA INITIALS AW 0833, REVIEWED BY: APA. CHRISTINA RN. EXAMINATION GENERAL EXAMINATION: THE PATIENT IS ALERT, ORIENTED TIMES THREE AND COOPERATIVE. LUNGS ARE CLEAR TO AUSCULTATION. HEART SHOWS REGULAR RHYTHM, NO MURMURS AND NO GALLOPS. ASSESSMENTS INTERVERTEBRAL DISC DISORDERS WITH RADICULOPATHY, LUMBAR REGION - M51.16 (PRIMARY) TREATMENT INTERVERTEBRAL DISC DISORDERS WITH RADICULOPATHY, LUMBAR REGION [facility] FLUORO GUIDE SPINE INJECTION (PAIN)[id number] SALINE LOCKSYLVERTHIAGO L 08/11/2020 9:39:58 AM > SL INSERTED IN LEFT HAND, 22 GAUGE, ON SECOND ATTEMPT AT 0930. SITE CLEAR, FLUSHING WITHOUT DIFFICULTY. PETRAS,HUSSEIN R 08/11/2020 10:21:08 AM > SL DISCONTINUED. CATHETER TIP INTACT, BLEEDING CONTROLLED, DSD APPLIED. COMPLETION OF PROCEDURAL VISIT WHEN MEETS CRITERIAPETRAS,HUSSEIN R 08/11/2020 10:20:34 AM > CRITERIA MET OTHERS NOTES: 08/08/20 1430 PAT COMPLETED. Ladonna SMART ASSEMBLYMAN OR WOMAN. PROCEDURES PAIN NURSING RECORD PROCEDURE IN ROOM 0935, PHYSICIAN IN ROOM 0955, START 0959, FINISH 1002, PHYSICIAN OUT OF ROOM 1005, OUT OF ROOM 1009, ECG NORMAL SINUS, PATIENT SHIELDED YES, SAFETY STRAP YES, PREP BETADINE Solitario VASQUEZ RN, DRESSING TEGADERM DR. ROSALES LOC: PETRAS,HUSSEIN R 08/11/2020 10:01:23 AM > 1. ALERT, ORIENTED RESP: PETRAS,HUSSEIN R 08/11/2020 10:01:27 AM > 1. REGULAR, NO DYSPNEA COLOR: PETRAS,HUSSEIN R 08/11/2020 10:01:31 AM > 1. PINK SKIN: PETRAS,HUSSEIN R 08/11/2020 10:01:34 AM > 1. WARM, DRY POSITION: PETRAS,HUSSEIN R 08/11/2020 10:01:37 AM > 1. PRONE VITALS: PETRAS,HUSSEIN R 08/11/2020 9:38:33 AM > 168/80, 66, 18, 100% PETRAS,HUSSEIN R 08/11/2020 9:43:53 AM > 159/88, 69, 16, 100% PETRAS,HUSSEIN R 08/11/2020 9:58:17 AM > 174/84, 72, 16, 99% CHRISTINA,HUSSEIN R 08/11/2020 10:06:42 AM > 169/91, 67, 16, 99% PETRCHINA,HUSSEIN R 08/11/2020 10:17:30 AM > 163/86, 66, 18, 97% NOTES Solitario VASQUEZ RN COMPLETION OF PROCEDURE APPOINTMENT: POST PAIN 0, DRESSING SITE DRY AND INTACT, IV DISCONTINUED, N/A, CATHETER INTACT Solitario VASQUEZ RN, GAIT STEADY, TEACHING COMPLETED, PATIENT ACKNOWLEDGES UNDERSTANDING YES, PROCEDURE APPOINTMENT COMPLETED AT 1021 BY: Solitario VASQUEZ RN PRE PROCEDURE DIAGNOSIS LUMBAR DISC DISORDER WITH RADICULOPATHY POST PROCEDURE DIAGNOSIS LUMBAR DISC DISORDER WITH RADICULOPATHY PROCEDURE LUMBAR EPIDURAL STEROID INJECTION UNDER FLUOROSCOPIC GUIDANCE SURGEON DR. TAWANA ROSALES COLLIERY CLERK NONE ANESTHESIA LOCAL PRE PROCEDURE NOTE THE PATIENT HAS A HISTORY OF CHRONIC LOW BACK PAIN. I EVALUATED THE PATIENT AND REVIEWED THE CHART. I WENT OVER THE RISKS, ALTERNATIVES, AND BENEFITS ASSOCIATED WITH THIS PROCEDURE. THE PATIENT WOULD LIKE TO PROCEED AND GIVE CONSENT TO PERFORMED THE PROCEDURE. THE PATIENT DENIES UNEXPLAINABLE WEIGHT LOSS, FEVER, CHILLS, OR NEW CHANGES IN URINARY OR BOWEL CONTROL. THE PATIENT IS COVID-19 NEGATIVE DESCRIPTION OF PROCEDURE THE PATIENT WAS BROUGHT TO THE PROCEDURE ROOM AND PLACED IN THE PRONE POSITION. THE LUMBOSACRAL AREA WAS CLEANED WITH BETADINE SOLUTION AND DRAPED ASEPTICALLY. THE PROCEDURE WAS DONE UNDER STERILE CONDITIONS. A TIMEOUT WAS PERFORMED WHERE THE CONSENTED SITE WAS VERIFIED WITH EVERYONE IN THE ROOM. UNDER FLUOROSCOPIC GUIDANCE, THE TARGET POINT WAS SELECTED AT THE INTERLAMINAR LEVEL OF L4-L5. I CONFIRMED AGAIN THE SITE OF TARGET. LIDOCAINE WAS USED TO NUMB THE SKIN AND THE SUBCUTANEOUS TISSUE BELOW IT. EPIDURAL TUOHY NEEDLE, 17-GAUGE, WAS ADVANCED UNDER FLUOROSCOPIC GUIDANCE AND FOLLOWING PATIENT FEEDBACK UNTIL THE EPIDURAL SPACE WAS REACHED 8 CM DEEP INTO THE SKIN BY THE LOSS OF RESISTANCE TECHNIQUE. ISOVUE-M DYE 30%, 0.25 ML, WAS INJECTED SHOWING ADEQUATE SPREAD OF THE DYE. THEN, A SOLUTION OF 3 ML OF NORMAL SALINE WITH DEPO-MEDROL 40 MG WAS INJECTED SLOWLY FOLLOWING PATIENT FEEDBACK. THE MEDICATIONS WERE VERIFIED WITH THE NURSE. THERE WAS NO EVIDENCE OF BLOOD, PARESTHESIA OR CEREBROSPINAL FLUID DURING THE PROCEDURE. THE PATIENT WAS SENT TO THE RECOVERY ROOM. THE PATIENT WAS MOVING THE EXTREMITIES AND DOING WELL. THERE WERE NO COMPLICATIONS DURING THE PROCEDURE. ESTIMATED BLOOD LOSS WAS LESS THAN 5 ML. FLUOROSCOPY TIME WAS 7 SECONDS POST PROCEDURE NOTE THE PATIENT WILL BE SEEN IN A FOLLOW UP IN THE NEXT FEW WEEKS. I AM LOOKING FOR LONG LASTING RELIEF FOR THE PATIENT WITH THIS INTERVENTION. INSTRUCTIONS WERE GIVEN, QUESTIONS WERE ANSWERED, AND THE PATIENT EXPRESSED UNDERSTANDING AND AGREES WITH THE PLAN. I, ANNIE MCLEAN, DOCUMENTED THE ABOVE INFORMATION ACTING A SCRIBE FOR DR. ROSALES. I HAVE REVIEWED THE ABOVE DOCUMENT, WRITTEN BY ANNIE MCLEAN, AIRCRAFT ORDNANCE TECHNICIAN, AND I VERIFY THAT IT IS ACCURATE PROCEDURE CODES 86279 LUMBAR/SACRAL W/ IMAGING DISPOSITION & COMMUNICATION FOLLOW UP FOLLOW UP WITH NUCLEAR ENGINEERING TECHNICIAN (REASON: POST LUMBAR EPIDURAL STEROID INJECTION) ELECTRONICALLY SIGNED BY TAWANA ROSALES MD, MD ON 08/11/2020 AT 04:35 PM EST DISCLAIMER : THIS IS A VISIT SUMMARY EXTRACTED FROM THE [facility] CHART. IT IS NOT A COPY OF THE [facility] PROGRESS NOTE. AVA
== END ==
LOC: M PAIN 08:30
PROVIDERS: ATTEND Anesthesiology
DX: M51.16 Intervertebral disc disorders with radiculopathy, lumbar region (principal); G47.30 Sleep apnea, unspecified; Z86.711 Personal history of pulmonary embolism; Z79.82 Long term (current) use of aspirin; Z79.899 Other long term (current) drug therapy
CPT/HCPCS: 62323; J1030; Q9967

== ENCOUNTER → 2020-08-25 | Outpatient (CLI) | payer BC ==
[~2020-08-25] MED LIST changes: -ISOVUE-M 300 61% 15ML VIAL As Ordered ONE; -LIDOCAINE 1% SDV 30ML VIAL As Ordered ONE; -methylPREDNISolone SUSP 40MG/ML 1ML VIAL (DEPO MEDROL) As Ordered ONE
--- NOTE | 2020-08-27 03:40 | ECWPNPC ---
PATIENT NAME: SHANNA ROSE : 1960 GENDER: MALE VISIT DATE: 08/25/2020 DISCHARGE DATE: 08/25/20 1349 VISIT LOCKED DATE TIME: PHYSICIAN: LUZ MARINA ROSE RESOURCE: LUZ MARINA ROSE REASON FOR APPOINTMENT 1. POST LUMBAR EPIDURAL STEROID INJECTION L4-L5 HISTORY OF PRESENT ILLNESS GENERAL: HERE FOR POST PROCEDURE FOLLOW-UP. HAD LUMBAR EPIDURAL STEROID INJECTION ON 08/11/2020. REPORTING MARKED REDUCTION IN PAIN THAT CONTINUES TODAY. REPORTING RESOLUTION OF RIGHT LEG SYMPTOMS. STATES HE CAN TIE HIS SHOES NOW WITHOUT PAIN. -. FALL RISK SCREENING: SCREENING : NO FALLS REPORTED IN THE LAST YEAR. PAIN SCREENING: PATIENT HAS A COMPLAINT OF ACUTE OR CHRONIC PAIN :YES LOCATION OF PAIN:LOW BACK INTENSITY OF PAIN (SCALE OF 1 TO 10):0 WHAT DOES YOUR PAIN FEEL LIKE:OTHER STIFFNES DURATION:INTERMITTENT PAIN IS INCREASED BY:PROLONGED STANDING, OTHERS SIITING ON A CHAIR WITHOUT A BACK SUPPORT PAIN IS DECREASED BY:OTHERS WALKING AROUND NURSING NOTE: -. PAIN CENTER INTAKE QUESTIONS: DO YOU HAVE A HISTORY OF MRSA? :NO DO YOU TAKE A BLOOD THINNERS? :NO ASPIRIN 81 MG DO YOU HAVE ANY BLEEDING DISORDERS? :NO ANY NEW NUMBNESS OR WEAKNESS IN YOUR LEGS OR ARMS? :NO ANY PACEMAKER,DEFIBRILLATOR, OR DORSAL COLUMN STIMULATOR? :NO DO YOU HAVE ANY RASHES OR OPEN SORES? :NO ARE YOU ALLERGIC TO IV DYE? :NO ARE YOU DIABETIC? :NO ANY NEW PROBLEMS WITH YOUR MEDICATIONS? :NO HAVE YOU RECEIVED A VACCINE IN THE PAST 30 DAYS? :NO DO YOU PLAN TO RECEIVE A VACCINE IN THE NEXT 21 DAYS? :YES IF SO WHAT VACCINE AND WHEN? WOULD LIKE THE COVID VACCINATION WHEN IT BECOMES AVAILABLE. DO YOU NEED ANY PRESCRIPTION? :NO DO YOU TAKE ANY IMMUNOSUPPRESSIVE MEDICATIONS? :NO IS THERE A CHANCE YOU COULD BE ? :NO ARE YOU BREAST FEEDING? :NO CURRENT MEDICATIONS TAKING CENTRUM SILVER - TABLET 1 TAB ORALLY EVERY DAY TAKING GABAPENTIN 100 MG CAPSULE 1 CAPSULE ORALLY THREE TIMES DAILY TAKING IBUPROFEN 200 MG TABLET 1 TABLET WITH FOOD OR MILK NEEDED ORALLY THREE TIMES A DAY TAKING NORTRIPTYLINE HCL 25 MG CAPSULE 1 CAPSULE ORALLY ONCE A DAY TAKING PRAVASTATIN SODIUM 20 MG TABLET 1 TABLET ORALLY ONCE A DAY TAKING PROBIOMAX DAILY DF - CAPSULE DIRECTED ORALLY 1 DAILY TAKING RIZATRIPTAN BENZOATE 10 MG TABLET 1 TABLET ORALLY ONCE A DAY, NOTES: MIGRAINES TAKING SILDENAFIL CITRATE 50 MG TABLET 1 TABLET NEEDED ORALLY ONCE A DAY TAKING ASPIRIN ADULT LOW STRENGTH 81 MG TABLET DELAYED RELEASE 1 TABLET ORALLY ONCE A DAY TAKING GLUCOSAMINE CHONDROITIN JOINT - TABLET DIRECTED ORALLY NOT-TAKING MAGNESIUM OXIDE 400 MG TABLET 1 TABLET NEEDED ORALLY ONCE A DAY MEDICATION LIST REVIEWED AND RECONCILED WITH THE PATIENT PAST MEDICAL HISTORY LOW BACK PAIN HIGH CHOLESTEROL PULMONARY EMBOLISM ALLERGIES N.K.D.A. SURGICAL HISTORY TONSILLECTOMY 1970 VASECTOMY 2002 LASIK 2002 COLONOSCOPY 01/2020 PROSTATE CANCER 08/21/2020 SOCIAL HISTORY GENERAL: TOBACCO USE ARE YOU A:NONSMOKER LATEX QUESTIONNAIRE LATEX ALLERGY : HAVE YOU EVER DEVELOPED ANY TYPE OF REACTION AFTER HANDLING LATEX PRODUCTS SUCH RUBBER GLOVES, CONDOMS, DIAPHRAGMS, BALLOONS, SOCKS, OR UNDERWEAR?NO LATEX ALLERGY : HAVE YOU EVER DEVELOPED ANY TYPE OF REACTION DURING OR AFTER DENTAL APPOINTMENT, VAGINAL/RECTAL EXAMINATION, SURGICAL PROCEDURE, OR ANY OTHER EXPOSURE?NO LATEX RISK : HAVE YOU EVER HAD ANY DIFFICULTY BREATHING OR HIVES AFTER EATING OR HANDLING ANY FRUITS, OR VEGETABLES; SUCH KIWI, BANANAS, STONE FRUITS, OR CHESTNUTSNO LATEX RISK : DO YOU HAVE A PREVIOUS PERSONAL HISTORY OF MORE THAN NINE SURGERIES, SPINA BIFIDA, OR REPEATED CATHERIZATIONS? NO LATEX RISK : ARE YOU FREQUENTLY EXPOSED TO LATEX PRODUCTS IN YOUR OCCUPATION?NO DATE ASKED : 08/25/2020 ALCOHOL USE: YES, VERY RARE MAYBE 2 A YEAR. RECREATIONAL DRUG USE DRUG USE?NO PRESYBETERIAN PRESYBETERIAN NO ANABAPTIST BELIEFS THAT WOULD IMPACT HEALTH CARE. LANGUAGE LANGUAGES SPOKEN:CHILEAN LEARNING BARRIERS / SPECIAL NEEDS BARRIERS TO LEARNING?NO HEARING IMPAIRED?YES :HEARING AIDES BILATERAL HEARING AIDES VISION IMPAIRED?YES : READING COGNITIVELY IMPAIRED?NO READINESS TO LEARN?YES LEARNING PREFERENCES?NO LEARNING CAPABILITIES PRESENT?YES EMOTIONAL BARRIERS?NO SPECIAL DEVICES?NO CERAMIC TILE INSTALLATION HELPER NEEDED?NO HOSPITALIZATION/MAJOR DIAGNOSTIC PROCEDURE SEE ABOVE REVIEW OF SYSTEMS CONSTITUTIONAL: ANY RECENT FEVER NO . CHILLS NO . WEIGHT CHANGE OF UNKNOWN REASONS NO . GASTROENTEROLOGY: NEW UNEXPLAINABLE CHANGES IN BOWEL CONTROL NO . CONSTIPATION NO . GENITOURINARY: ANY NEW CHANGE IN BLADDER CONTROL? NO . NEUROLOGY: NEW ONSET DIZZINESS OR NEUROLOGICAL CHANGES NOT MENTIONED NO . NEW NUMBNESS OR PAIN PATTERNS NOT MENTIONED AND PERTINENT TO TODAY'S VISIT NO . CARDIOLOGY: NEW CHEST PRESSURE NO . PATIENT DENIES NO . RESPIRATORY: UNEXPLAINABLE COUGH NO . NEW SHORTNESS OF BREATH NO . VITAL SIGNS WT 271 LBS, HT 70 IN, BMI 38.88 INDEX, BP 136/79 MM HG, HR 84 /MIN, RR 18 /MIN, TEMP 96.9 F, OXYGEN SAT % 98%, SAFE IN ENV? (Y/N) YES, NA INITIALS SC 13:31T.LEWIS MA. EXAMINATION GENERAL EXAMINATION: GENERALAWAKE,ALERT ,PLEASANT . PSYCHAFFECT NORMAL . LUNGS:LUNG GONZALEZ ARE CLEAR TO AUSCULTATION BILATERALLY. GOOD MOVEMENT OF AIR . HEART:S1, S2 IN A REGULAR RATE AND RHYTHM. NO SIGNIFICANT MURMURS, RUBS OR GALLOPS NOTED . ASSESSMENTS OTHER CHRONIC PAIN - G89.29 (PRIMARY) INTERVERTEBRAL DISC DISORDERS WITH RADICULOPATHY, LUMBAR REGION - M51.16 TREATMENT OTHER CHRONIC PAIN PAIN PROCEDURE LOGDATE OF TFTLENPOC40/01/2021PROCEDURE:LUMBAR EPIDURAL STEROID INJECTION L4-5AMOUNT OF PRE SEDATENO PRESEDATERESULT:MARKED REDUCTION IN LOW BACK AND RIGHT LEG PAIN. IMPROVED ACTIVITY TOLERANCE. NOTES: PATIENT WAS ADVISED TO START A WALKING PROGRAM TO STRENGTHEN LUMBAR PARASPINAL MUSCLES AND IMPROVE MOBILITY. THEY WERE ADVISED THAT THIS WILL IMPROVE WEIGHT LOSS AND ALSO DEPRESSION/FIBROMYALGIA SYMPTOMS. ADVISED TO WALK 10 MINUTES EVERY OTHER DAY ON A FLAT SURFACE. EMPHASIZED THE IMPORTANCE OF DOING THIS CONSISTANTLY AND NOT SPORATICALLY TO AVOID INJURY. PROCEDURE CODES FA211 ESTABILISHED PATIENT [facility] CHARGE DISPOSITION & COMMUNICATION FOLLOW UP 3 MONTHS (REASON: LOW BACK PAIN/DOES WELL WITH LESI) ELECTRONICALLY SIGNED BY DANIELE FLORES ON 08/26/2020 AT 11:33 AM EDT DISCLAIMER : THIS IS A VISIT SUMMARY EXTRACTED FROM THE [employer] CHART. IT IS NOT A COPY OF THE [employer] PROGRESS NOTE. AVA
== END ==
LOC: M PAIN 13:30
PROVIDERS: ATTEND Nurse Practitioner Family
DX: M51.16 Intervertebral disc disorders with radiculopathy, lumbar region (principal); G89.29 Other chronic pain; Z86.711 Personal history of pulmonary embolism; Z79.82 Long term (current) use of aspirin; Z79.899 Other long term (current) drug therapy

== ENCOUNTER → 2020-10-10 | Outpatient (CLI) | payer BC ==
[2020-10-10 09:56] LABS: BASO % 0.5 % (0.0-1.0); EOS # 0.2 10^3/uL (0.0-0.5); EOS % 2.6 % (0.0-3.0); HEMATOCRIT 47.4 % (42.0-52.0); HEMOGLOBIN 16.1 g/dl (13.5-17.5); LYMPH % 49.1 % (24.0-44.0); MEAN CORPUSCULAR HEMOGLOBIN 33.1 pg (27.0-33.0); MEAN CORPUSCULAR VOLUME 97.5 fl (80.0-96.0); MONO # 0.7 10^3/uL (0.0-0.8); MONO % 10.8 % (2.0-8.0); NEUTROPHILS # 2.3 10^3/uL (1.5-8.5); NEUTROPHILS % 36.8 % (36.0-66.0); PLATELET COUNT, AUTOMATED 229 10^3/uL (150-450); RED BLOOD COUNT 4.86 10^6/uL (4.30-6.10); WHITE BLOOD COUNT 6.1 10^3/uL (4.0-10.0)
[2020-10-10 10:10] LABS: INR 1.01; PROTHROMBIN TIME 13.5 SECONDS (12.5-14.3)
[2020-10-10 10:11] LABS: PARTIAL THROMBOPLASTIN TIME 28.6 SECONDS (24.2-38.5)
[2020-10-10 10:30] LABS: ALBUMIN 4.1 GM/DL (3.2-5.2); ALT/SGPT 39 U/L (12-78); BILIRUBIN,TOTAL 0.5 MG/DL (0.2-1.0); BLOOD UREA NITROGEN 18 MG/DL (7-18); CARBON DIOXIDE LEVEL 31 MEQ/L (21-32); CHLORIDE LEVEL 105 MEQ/L (98-107); CREATININE FOR GFR 0.93 MG/DL (0.70-1.30); GLOMERULAR FILTRATION RATE > 60.0 (>56); GLUCOSE, FASTING 113 MG/DL (70-100); POTASSIUM SERUM 4.5 MEQ/L (3.5-5.1); SODIUM LEVEL 141 MEQ/L (136-145); TOTAL PROTEIN 7.4 GM/DL (6.4-8.2)
--- NOTE | 2020-10-10 11:50 | REP ---
INDICATION: PRE PROCEDURE TESTING, PULMONARY NODULE. COMPARISON: 10/19/2015 the latest prior a portable exam FINDINGS: The superior mediastinal structures are midline. The cardiac silhouette is unremarkable in size, shape, and position. The diaphragmatic surfaces of the lungs are regular, and the costophrenic angles are clear. The pulmonary atnon are clear. The imaged osseous structures are intact. IMPRESSION: There is no acute cardiopulmonary disease. <Electronically signed by Angel Atkins > 10/10/20 114
== END ==
LOC: M WUC 07:54
PROVIDERS: ATTEND Family Medicine
DX: Z01.818 Encounter for other preprocedural examination (principal); R91.1 Solitary pulmonary nodule

== ENCOUNTER → 2020-11-04 | Outpatient (CLI) | payer BC ==
--- NOTE | 2020-11-06 02:58 | ECWPNPC ---
PATIENT NAME: SHANNA ROSE : 1960 GENDER: MALE VISIT DATE: 11/04/2020 DISCHARGE DATE: 11/04/2059 VISIT LOCKED DATE TIME: PHYSICIAN: LUZ MARINA ROSE RESOURCE: LUZ MARINA ROSE REASON FOR APPOINTMENT 1. INCREASED PAIN/WANTS PROCEDURE HISTORY OF PRESENT ILLNESS GENERAL: HERE FOR FOLLOW-UP OF CHRONIC LOW BACK PAIN. HAD SEVERE FLAREUP OF LOW BACK PAIN THAT REQUIRED EMERGENCY ROOM VISIT IN SEPTEMBER. REPORTS SEVERE CENTRAL LOW BACK PAIN WITH NO RADICULAR SYMPTOMS AFTER STANDING ON A LADDER AND REACHING FOR AN OBJECT. HAS BEEN SEEN BY LISBETH MCKEON,NEUROSURGERY IN [place]. [facility] IS RECOMMENDING TRIAL OF LUMBAR THERAPEUTIC BLOCK. REVIEWED MRI OF THE LS-SPINE. PATIENT WAS RECENTLY DIAGNOSED WITH DVT RIGHT LOWER EXTREMITY AND IS ON A BLOOD THINNER. HAD ABDOMINAL/PROSTATE SURGERY A FEW WEEKS AGO. HAS NOT HAD LUMBAR PAIN BUT IS EXPERIENCING SOME ABDOMINAL PAIN POST SURGICALLY. REVIEWED LUMBAR FACET BLOCKS WITH PATIENT. DISCUSSED DIFFERENT INJECTIONS THAT WE MIGHT TRY TO TRY TO HELP HIM. THIS IS GOING TO REQUIRE FREQUENT FOLLOW-UPS TO EVALUATE PROGRESS. -. FALL RISK SCREENING: SCREENING : NO FALLS REPORTED IN THE LAST YEAR. PAIN SCREENING: PATIENT HAS A COMPLAINT OF ACUTE OR CHRONIC PAIN :YES LOCATION OF PAIN:LOW BACK INTENSITY OF PAIN (SCALE OF 1 TO 10):0 WHAT DOES YOUR PAIN FEEL LIKE:OTHER NOT IN ANY PAIN RIGHT N0W DURATION:ONLY WITH SPECIFIC ACTIVITIES PAIN IS INCREASED BY:OTHERS SITTING, STRETCHING PAIN IS DECREASED BY:OTHERS PHYSICAL THERAPY NURSING NOTE: -. PAIN CENTER INTAKE QUESTIONS: DO YOU HAVE A HISTORY OF MRSA? :NO DO YOU TAKE A BLOOD THINNERS? :YES ELIQUIS 5 MG DO YOU HAVE ANY BLEEDING DISORDERS? :NO ANY NEW NUMBNESS OR WEAKNESS IN YOUR LEGS OR ARMS? :NO ANY PACEMAKER,DEFIBRILLATOR, OR DORSAL COLUMN STIMULATOR? :NO DO YOU HAVE ANY RASHES OR OPEN SORES? :YES ON HIS STOMACH AREA ARE YOU ALLERGIC TO IV DYE? :NO ARE YOU DIABETIC? :NO ANY NEW PROBLEMS WITH YOUR MEDICATIONS? :NO HAVE YOU RECEIVED A VACCINE IN THE PAST 30 DAYS? :NO DO YOU PLAN TO RECEIVE A VACCINE IN THE NEXT 21 DAYS? :YES IF SO WHAT VACCINE AND WHEN? WOULD LIKE THE COVID VACCINATION WHEN IT BECOMES AVAILABLE. DO YOU NEED ANY PRESCRIPTION? :NO DO YOU TAKE ANY IMMUNOSUPPRESSIVE MEDICATIONS? :NO IS THERE A CHANCE YOU COULD BE ? :NO ARE YOU BREAST FEEDING? :NO CURRENT MEDICATIONS TAKING CENTRUM SILVER - TABLET 1 TAB ORALLY EVERY DAY TAKING GABAPENTIN 100 MG CAPSULE 1 CAPSULE ORALLY THREE TIMES DAILY TAKING IBUPROFEN 200 MG TABLET 1 TABLET WITH FOOD OR MILK NEEDED ORALLY THREE TIMES A DAY TAKING NORTRIPTYLINE HCL 25 MG CAPSULE 1 CAPSULE ORALLY ONCE A DAY TAKING PRAVASTATIN SODIUM 20 MG TABLET 1 TABLET ORALLY ONCE A DAY TAKING PROBIOMAX DAILY DF - CAPSULE DIRECTED ORALLY 1 DAILY TAKING RIZATRIPTAN BENZOATE 10 MG TABLET 1 TABLET ORALLY ONCE A DAY, NOTES: MIGRAINES TAKING SILDENAFIL CITRATE 50 MG TABLET 1 TABLET NEEDED ORALLY ONCE A DAY TAKING ASPIRIN ADULT LOW STRENGTH 81 MG TABLET DELAYED RELEASE 1 TABLET ORALLY ONCE A DAY TAKING GLUCOSAMINE CHONDROITIN JOINT - TABLET DIRECTED ORALLY TAKING CIALIS 20 MG TABLET 1 TABLET ORALLY ONCE A DAY TAKING ELIQUIS 5 MG TABLET 2 TAB DIRECTED ORALLY TWICE A DAY NOT-TAKING MAGNESIUM OXIDE 400 MG TABLET 1 TABLET NEEDED ORALLY ONCE A DAY MEDICATION LIST REVIEWED AND RECONCILED WITH THE PATIENT PAST MEDICAL HISTORY LOW BACK PAIN HIGH CHOLESTEROL PULMONARY EMBOLISM PROSTATE CANCER ALLERGIES N.K.D.A. SURGICAL HISTORY TONSILLECTOMY 1970 VASECTOMY 2002 LASIK 2002 COLONOSCOPY 01/2020 PROSTATE CANCER 08/21/2020 PROSTATE REMOVED 10/20/2020 FAMILY HISTORY FATHER: , DIAGNOSED WITH OTHER SPECIFIED CONDITIONS INFLUENCING HEALTH STATUS FATHER TO THROAT, COLON, LIVER, STOMACH CANCER. SOCIAL HISTORY GENERAL: TOBACCO USE ARE YOU A:NONSMOKER LATEX QUESTIONNAIRE LATEX ALLERGY : HAVE YOU EVER DEVELOPED ANY TYPE OF REACTION AFTER HANDLING LATEX PRODUCTS SUCH RUBBER GLOVES, CONDOMS, DIAPHRAGMS, BALLOONS, SOCKS, OR UNDERWEAR?NO LATEX ALLERGY : HAVE YOU EVER DEVELOPED ANY TYPE OF REACTION DURING OR AFTER DENTAL APPOINTMENT, VAGINAL/RECTAL EXAMINATION, SURGICAL PROCEDURE, OR ANY OTHER EXPOSURE?NO LATEX RISK : HAVE YOU EVER HAD ANY DIFFICULTY BREATHING OR HIVES AFTER EATING OR HANDLING ANY FRUITS, OR VEGETABLES; SUCH KIWI, BANANAS, STONE FRUITS, OR CHESTNUTSNO LATEX RISK : DO YOU HAVE A PREVIOUS PERSONAL HISTORY OF MORE THAN NINE SURGERIES, SPINA BIFIDA, OR REPEATED CATHERIZATIONS? NO LATEX RISK : ARE YOU FREQUENTLY EXPOSED TO LATEX PRODUCTS IN YOUR OCCUPATION?NO DATE ASKED : 11/04/2020 ALCOHOL USE: YES, VERY RARE MAYBE 2 A YEAR. RECREATIONAL DRUG USE DRUG USE?NO YAZIDISM YAZIDISM NO SHINTO BELIEFS THAT WOULD IMPACT HEALTH CARE. LANGUAGE LANGUAGES SPOKEN:WELSH LEARNING BARRIERS / SPECIAL NEEDS BARRIERS TO LEARNING?NO HEARING IMPAIRED?YES :HEARING AIDES BILATERAL HEARING AIDES VISION IMPAIRED?YES : READING COGNITIVELY IMPAIRED?NO READINESS TO LEARN?YES LEARNING PREFERENCES?NO LEARNING CAPABILITIES PRESENT?YES EMOTIONAL BARRIERS?NO SPECIAL DEVICES?NO SEED MILL SUPERINTENDENT NEEDED?NO HOSPITALIZATION/MAJOR DIAGNOSTIC PROCEDURE SEE ABOVE DVT BLOOD CLOT IN HIS RIGHT LEG 11/03/2020 REVIEW OF SYSTEMS CONSTITUTIONAL: ANY RECENT FEVER NO . CHILLS NO . WEIGHT CHANGE OF UNKNOWN REASONS NO . GASTROENTEROLOGY: NEW UNEXPLAINABLE CHANGES IN BOWEL CONTROL NO . CONSTIPATION NO . GENITOURINARY: ANY NEW CHANGE IN BLADDER CONTROL? NO . NEUROLOGY: NEW ONSET DIZZINESS OR NEUROLOGICAL CHANGES NOT MENTIONED NO . NEW NUMBNESS OR PAIN PATTERNS NOT MENTIONED AND PERTINENT TO TODAY'S VISIT NO . CARDIOLOGY: NEW CHEST PRESSURE NO . PATIENT DENIES NO . RESPIRATORY: UNEXPLAINABLE COUGH NO . NEW SHORTNESS OF BREATH NO . VITAL SIGNS WT 276.4 LBS, HT 70 IN, BMI 39.65 INDEX, BP 138/67 MM HG, HR 82 /MIN, RR 18 /MIN, TEMP 97.4 F, OXYGEN SAT % 98%, SAFE IN ENV? (Y/N) YES, NA INITIALS AW 0916T.LEWIS BARRETO. EXAMINATION GENERAL EXAMINATION: GENERALAWAKE,ALERT ,PLEASANT . PSYCHAFFECT NORMAL . LUNGS:LUNG GONZALEZ ARE CLEAR TO AUSCULTATION BILATERALLY. GOOD MOVEMENT OF AIR . HEART:S1, S2 IN A REGULAR RATE AND RHYTHM. NO SIGNIFICANT MURMURS, RUBS OR GALLOPS NOTED . ASSESSMENTS LUMBAR FACET ARTHROPATHY - M47.816 (PRIMARY) INTERVERTEBRAL DISC DISORDERS WITH RADICULOPATHY, LUMBAR REGION - M51.16 TREATMENT LUMBAR FACET ARTHROPATHY NOTES: PATIENT IS 2 WEEKS POSTOPERATIVE AND ALSO BEING TREATED FOR DVT IN HIS RIGHT LOWER EXTREMITY WITH ANTICOAGULANT. HAS PRESCRIPTION FOR TIZANIDINE 4 MG TABLET PRESCRIBED BY PRIMARY CARE TO TAKE IF HE HAS A FLAREUP IN HIS LOW BACK PAIN. ADVISED PATIENT TO CALL OUR CLINIC SHOULD HE HAVE PROBLEMS WITH LOW BACK PAIN THAT IS NOT RESPONDING TO MUSCLE RELAXANT. I ALSO WOULD RECOMMEND THAT HE USE TYLENOL 500 MG 2 TABLETS WITH TIZANIDINE IF HE HAS A FLAREUP IN LOW BACK PAIN. A FOLLOW-UP WILL BE SCHEDULED IN 6 WEEKS TO DISCUSS TREATMENT OPTIONS. PROCEDURE CODES FA211 ESTABILISHED PATIENT [facility] FACILITY CHARGE DISPOSITION & COMMUNICATION FOLLOW UP 6 WEEKS (REASON: DISCUSS LUMBAR FACET BLOCK DIAGNOSTIC AND RADIOFREQUENCY/LOW BACK PAIN/) ELECTRONICALLY SIGNED BY DANIELE FLORES ON 11/05/2020 AT 09:34 AM EDT DISCLAIMER : THIS IS A VISIT SUMMARY EXTRACTED FROM THE [employer] CHART. IT IS NOT A COPY OF THE [employer] PROGRESS NOTE. AVA
== END ==
LOC: M PAIN 09:15
PROVIDERS: ATTEND Nurse Practitioner Family
DX: M51.16 Intervertebral disc disorders with radiculopathy, lumbar region (principal); G89.29 Other chronic pain; Z86.711 Personal history of pulmonary embolism; Z79.01 Long term (current) use of anticoagulants; Z79.82 Long term (current) use of aspirin; Z79.899 Other long term (current) drug therapy

== ENCOUNTER → 2020-11-20 | Outpatient (CLI) | payer BC | LOC: M WUC 13:13 | PROVIDERS: ATTEND Urology | DX: C61 Malignant neoplasm of prostate (principal) ==

== ENCOUNTER → 2020-12-18 | Outpatient (CLI) | payer BC ==
--- NOTE | 2020-12-20 03:38 | ECWPNPC ---
PATIENT NAME: SHANNA ROSE : 1960 GENDER: MALE VISIT DATE: 12/18/2020 DISCHARGE DATE: 12/18/20934 VISIT LOCKED DATE TIME: PHYSICIAN: LUZ MARINA ROSE RESOURCE: LUZ MARINA ROSE REASON FOR APPOINTMENT 1. DISCUSS LUMBAR FACET BLOCK DIAGNOSTIC AND RADIOFREQUENCY/LOW BACK PAIN/ HISTORY OF PRESENT ILLNESS GENERAL: HERE FOR FOLLOW-UP OF CHRONIC LOW BACK PAIN. HAS RESPONDED WELL TO THERAPEUTIC LUMBAR FACET BLOCK IN THE PAST. PAIN HAS RETURNED TO BASELINE. REPORTS EPISODES OF BACK PAIN WITH SITTING IN A CHAIR UNSUPPORTED. DISCUSSED DIAGNOSTIC LUMBAR FACET BLOCK AND RADIOFREQUENCY PROCESS. -. FALL RISK SCREENING: SCREENING : NO FALLS REPORTED IN THE LAST YEAR. PAIN SCREENING: PATIENT HAS A COMPLAINT OF ACUTE OR CHRONIC PAIN :YES LOCATION OF PAIN:LOW BACK INTENSITY OF PAIN (SCALE OF 1 TO 10):2 WHAT DOES YOUR PAIN FEEL LIKE:CONTINOUS, THROBBING DURATION:CONTINOUS, CONSTANT, ALL DAY PAIN IS INCREASED BY:OTHERS SITTING PAIN IS DECREASED BY:OTHERS HEAT, PHYSICAL THERAPY NURSING NOTE: -PATIENT GET ELIQUIS FROM REGINALD SONI HIS PRIMARY CARE PROVIDER. PAIN CENTER INTAKE QUESTIONS: DO YOU HAVE A HISTORY OF MRSA? :NO DO YOU TAKE A BLOOD THINNERS? :YES ELIQUIS 5 MG DO YOU HAVE ANY BLEEDING DISORDERS? :NO ANY NEW NUMBNESS OR WEAKNESS IN YOUR LEGS OR ARMS? :NO ANY PACEMAKER,DEFIBRILLATOR, OR DORSAL COLUMN STIMULATOR? :NO DO YOU HAVE ANY RASHES OR OPEN SORES? :NO ON HIS STOMACH AREA ARE YOU ALLERGIC TO IV DYE? :NO ARE YOU DIABETIC? :NO ANY NEW PROBLEMS WITH YOUR MEDICATIONS? :NO HAVE YOU RECEIVED A VACCINE IN THE PAST 30 DAYS? :NO DO YOU PLAN TO RECEIVE A VACCINE IN THE NEXT 21 DAYS? :NO WOULD LIKE THE COVID VACCINATION WHEN IT BECOMES AVAILABLE. DO YOU NEED ANY PRESCRIPTION? :NO DO YOU TAKE ANY IMMUNOSUPPRESSIVE MEDICATIONS? :NO IS THERE A CHANCE YOU COULD BE ? :NO ARE YOU BREAST FEEDING? :NO CURRENT MEDICATIONS TAKING CENTRUM SILVER - TABLET 1 TAB ORALLY EVERY DAY TAKING GABAPENTIN 300 MG CAPSULE 1 CAPSULE ORALLY THREE TIMES DAILY TAKING IBUPROFEN 200 MG TABLET 1 TABLET WITH FOOD OR MILK NEEDED ORALLY THREE TIMES A DAY TAKING NORTRIPTYLINE HCL 25 MG CAPSULE 1 CAPSULE ORALLY ONCE A DAY TAKING PRAVASTATIN SODIUM 20 MG TABLET 1 TABLET ORALLY ONCE A DAY TAKING PROBIOMAX DAILY DF - CAPSULE DIRECTED ORALLY 1 DAILY TAKING RIZATRIPTAN BENZOATE 10 MG TABLET 1 TABLET ORALLY ONCE A DAY, NOTES: MIGRAINES TAKING GLUCOSAMINE CHONDROITIN JOINT - TABLET DIRECTED ORALLY 2 TAB OMCE DAY, NOTES: VITAMIN TAKING CIALIS 20 MG TABLET 1 TABLET ORALLY ONCE A DAY TAKING ELIQUIS 5 MG TABLET 2 TAB DIRECTED ORALLY TWICE A DAY NOT-TAKING SILDENAFIL CITRATE 50 MG TABLET 1 TABLET NEEDED ORALLY ONCE A DAY NOT-TAKING ASPIRIN ADULT LOW STRENGTH 81 MG TABLET DELAYED RELEASE 1 TABLET ORALLY ONCE A DAY NOT-TAKING MAGNESIUM OXIDE 400 MG TABLET 1 TABLET NEEDED ORALLY ONCE A DAY MEDICATION LIST REVIEWED AND RECONCILED WITH THE PATIENT PAST MEDICAL HISTORY LOW BACK PAIN HIGH CHOLESTEROL PULMONARY EMBOLISM PROSTATE CANCER ALLERGIES N.K.D.A. SURGICAL HISTORY TONSILLECTOMY 1970 VASECTOMY 2002 LASIK 2002 COLONOSCOPY 01/2020 PROSTATE CANCER 08/21/2020 PROSTATE REMOVED 10/20/2020 SOCIAL HISTORY GENERAL: TOBACCO USE ARE YOU A:NONSMOKER NEVER SMOKER LATEX QUESTIONNAIRE LATEX ALLERGY : HAVE YOU EVER DEVELOPED ANY TYPE OF REACTION AFTER HANDLING LATEX PRODUCTS SUCH RUBBER GLOVES, CONDOMS, DIAPHRAGMS, BALLOONS, SOCKS, OR UNDERWEAR?NO LATEX ALLERGY : HAVE YOU EVER DEVELOPED ANY TYPE OF REACTION DURING OR AFTER DENTAL APPOINTMENT, VAGINAL/RECTAL EXAMINATION, SURGICAL PROCEDURE, OR ANY OTHER EXPOSURE?NO LATEX RISK : HAVE YOU EVER HAD ANY DIFFICULTY BREATHING OR HIVES AFTER EATING OR HANDLING ANY FRUITS, OR VEGETABLES; SUCH KIWI, BANANAS, STONE FRUITS, OR CHESTNUTSNO LATEX RISK : DO YOU HAVE A PREVIOUS PERSONAL HISTORY OF MORE THAN NINE SURGERIES, SPINA BIFIDA, OR REPEATED CATHERIZATIONS? NO LATEX RISK : ARE YOU FREQUENTLY EXPOSED TO LATEX PRODUCTS IN YOUR OCCUPATION?NO DATE ASKED : 12/18/2020 ALCOHOL USE: YES, VERY RARE MAYBE 2 A YEAR. RECREATIONAL DRUG USE DRUG USE?NO RASTAFARIAN RASTAFARIAN NO HOAHAOISM BELIEFS THAT WOULD IMPACT HEALTH CARE. LANGUAGE LANGUAGES SPOKEN:SLOVENIAN LEARNING BARRIERS / SPECIAL NEEDS BARRIERS TO LEARNING?NO HEARING IMPAIRED?YES :HEARING AIDES BILATERAL HEARING AIDES VISION IMPAIRED?YES : READING COGNITIVELY IMPAIRED?NO READINESS TO LEARN?YES LEARNING PREFERENCES?NO LEARNING CAPABILITIES PRESENT?YES EMOTIONAL BARRIERS?NO SPECIAL DEVICES?NO DISTRICT CLAIMS MANAGER NEEDED?NO HOSPITALIZATION/MAJOR DIAGNOSTIC PROCEDURE SEE ABOVE DVT BLOOD CLOT IN HIS RIGHT LEG 11/03/2020 REVIEW OF SYSTEMS CONSTITUTIONAL: ANY RECENT FEVER NO . CHILLS NO . WEIGHT CHANGE OF UNKNOWN REASONS NO . GASTROENTEROLOGY: NEW UNEXPLAINABLE CHANGES IN BOWEL CONTROL NO . CONSTIPATION NO . GENITOURINARY: ANY NEW CHANGE IN BLADDER CONTROL? NO . NEUROLOGY: NEW ONSET DIZZINESS OR NEUROLOGICAL CHANGES NOT MENTIONED NO . NEW NUMBNESS OR PAIN PATTERNS NOT MENTIONED AND PERTINENT TO TODAY'S VISIT NO . CARDIOLOGY: NEW CHEST PRESSURE NO . PATIENT DENIES NO . RESPIRATORY: UNEXPLAINABLE COUGH NO . NEW SHORTNESS OF BREATH NO . VITAL SIGNS WT 268.4 LBS, HT 70 IN, BMI 38.51 INDEX, BP 130/62 MM HG, HR 80 /MIN, RR 18 /MIN, TEMP 97.5 F, OXYGEN SAT % 96%, SAFE IN ENV? (Y/N) YES, NA INITIALS AW 0856T.LEWIS BARRETO. EXAMINATION GENERAL EXAMINATION: GENERALAWAKE,ALERT ,PLEAASANT . PSYCHAFFECT NORMAL . LUNGS:LUNG GONZALEZ ARE CLEAR TO AUSCULTATION BILATERALLY. GOOD MOVEMENT OF AIR . HEART:S1, S2 IN A REGULAR RATE AND RHYTHM. NO SIGNIFICANT MURMURS, RUBS OR GALLOPS NOTED . LUMBAR:PALPATION:TENDER OVER BILAT. L4/5-L5/S1 LUMBAR FACETS WITH FACET LOADING.. ASSESSMENTS LUMBAR FACET ARTHROPATHY - M47.816 (PRIMARY) INTERVERTEBRAL DISC DISORDERS WITH RADICULOPATHY, LUMBAR REGION - M51.16 TREATMENT LUMBAR FACET ARTHROPATHY NOTES: CONTINUE HOME EXERCISE AND STRETCHING. CONTINUE USE OF MUSCLE RELAXANT, TIZANIDINE PRESCRIBED BY PRIMARY CARE NEEDED FOR SEVERE PAIN FLAREUPS. INSTRUCTED TO CALL OUR OFFICE SHOULD HIS PAIN STAY ELEVATED ABOVE 5 LEVEL FOR AN EXTENDED PERIOD OF TIME TO CONSIDER DIAGNOSTIC LUMBAR FACET BLOCKS AND RADIOFREQUENCY. PROCEDURE CODES FA211 ESTABILISHED PATIENT [facility] CHARGE DISPOSITION & COMMUNICATION FOLLOW UP PT WILL CALL (REASON: LOW BACK PAIN/CONSIDER LFB DX IF PAIN RETURNS) ELECTRONICALLY SIGNED BY DANIELE FLORES ON 12/19/2020 AT 12:05 PM EDT DISCLAIMER : THIS IS A VISIT SUMMARY EXTRACTED FROM THE [employer] CHART. IT IS NOT A COPY OF THE [employer] PROGRESS NOTE. AVA
== END ==
LOC: M PAIN 09:00
PROVIDERS: ATTEND Nurse Practitioner Family
DX: M51.16 Intervertebral disc disorders with radiculopathy, lumbar region (principal); G89.29 Other chronic pain; Z86.711 Personal history of pulmonary embolism; Z79.01 Long term (current) use of anticoagulants; Z79.899 Other long term (current) drug therapy

== ENCOUNTER → 2021-03-03 | Outpatient (CLI) | payer BC ==
[~2021-03-03] MED LIST changes: +CIAL5TAB PO; +ELIQ5TAB PO; +GABA-282 PO; +NORT25CA2 PO; +PRAV20TA2 PO; +TIZA4CAP PO
== END ==
LOC: M WUC 08:57
PROVIDERS: ATTEND Urology
DX: C61 Malignant neoplasm of prostate (principal)

== ENCOUNTER → 2021-07-01 | Outpatient (CLI) | payer BC ==
[2021-07-01 13:35] LABS: BASO % 0.7 % (0.0-1.0); EOS # 0.2 10^3/uL (0.0-0.5); EOS % 3.6 % (0.0-3.0); HEMOGLOBIN 14.6 g/dl (13.5-17.5); LYMPH # 1.6 10^3/uL (1.5-5.0); LYMPH % 36.4 % (24.0-44.0); MEAN CORPUSCULAR HGB CONC 32.4 g/dl (32.0-36.5); MEAN CORPUSCULAR VOLUME 98.7 fl (80.0-96.0); MONO # 0.5 10^3/uL (0.0-0.8); MONO % 11.5 % (2.0-8.0); NEUTROPHILS # 2.1 10^3/uL (1.5-8.5); NEUTROPHILS % 47.6 % (36.0-66.0); PLATELET COUNT, AUTOMATED 239 10^3/uL (150-450); RED BLOOD COUNT 4.56 10^6/uL (4.30-6.10); WHITE BLOOD COUNT 4.4 10^3/uL (4.0-10.0)
[2021-07-01 14:44] LABS: APPEARANCE, URINE CLEAR (CLEAR); BACTERIA, URINE AUTO NEGATIVE (NEGATIVE); BILIRUBIN, URINE AUTO NEGATIVE (NEGATIVE); BLOOD, URINE BLOOD NEGATIVE (NEGATIVE); COLOR, URINE YELLOW (YELLOW); GLUCOSE, URINE (UA) AUTO NEGATIVE (NEGATIVE); KETONE, URINE AUTO NEGATIVE (NEGATIVE); LEUKOCYTE ESTERASE, URINE AUTO NEGATIVE (NEGATIVE); MUCUS, URINE SMALL (NEGATIVE); NITRITE, URINE AUTO NEGATIVE (NEGATIVE); PROTEIN, URINE AUTO NEGATIVE (NEGATIVE); RBC, URINE AUTO 1 /HPF (0-3); SPECIFIC GRAVITY URINE AUTO 1.021 (1.002-1.035); SQUAMOUS EPITHELIAL CELL UR AU 0 /HPF (0-6); UROBILINOGEN, URINE AUTO 0.2 mg/dL (0.0-2.0); WBC, URINE AUTO 0 /HPF (0-3)
[2021-07-01 15:43] LABS: ALBUMIN 3.7 GM/DL (3.2-5.2); ALT/SGPT 28 U/L (12-78); BILIRUBIN,TOTAL 0.6 MG/DL (0.2-1.0); BLOOD UREA NITROGEN 21 MG/DL (7-18); CALCIUM LEVEL 9.5 MG/DL (8.5-10.1); CARBON DIOXIDE LEVEL 30 MEQ/L (21-32); CHLORIDE LEVEL 105 MEQ/L (98-107); CHOLESTEROL LEVEL 165 MG/DL (<200); CHOLESTEROL RISK RATIO 3.367 (<5); CREATININE FOR GFR 0.94 MG/DL (0.70-1.30); FREE T4 0.84 NG/DL (0.76-1.46); GLOMERULAR FILTRATION RATE > 60.0 (>56); GLUCOSE, FASTING 113 MG/DL (70-100); HDL CHOLESTEROL 49 MG/DL (>40); LDL CHOLESTEROL 83 MG/DL (<100); MAGNESIUM LEVEL 2.3 MG/DL (1.8-2.4); NON-HDL-C 116 MG/DL; POTASSIUM SERUM 4.2 MEQ/L (3.5-5.1); SODIUM LEVEL 140 MEQ/L (136-145); TOTAL PROTEIN 7.1 GM/DL (6.4-8.2); TRIGLYCERIDES LEVEL 167 MG/DL (<150)
== END ==
LOC: M WUC 09:51
PROVIDERS: ATTEND Family Medicine
DX: E78.5 Hyperlipidemia, unspecified (principal); G43.009 Migraine without aura, not intractable, without status migrainosus; G47.33 Obstructive sleep apnea (adult) (pediatric)

== ENCOUNTER → 2022-01-14 | Outpatient (CLI) | payer BC ==
[2022-01-14 10:06] LABS: BASO % 0.8 % (0.0-1.0); EOS # 0.1 10^3/uL (0.0-0.5); HEMATOCRIT 44.4 % (42.0-52.0); HEMOGLOBIN 14.7 g/dl (13.5-17.5); LYMPH # 1.4 10^3/uL (1.5-5.0); LYMPH % 38.8 % (24.0-44.0); MEAN CORPUSCULAR HEMOGLOBIN 32.6 pg (27.0-33.0); MEAN CORPUSCULAR HGB CONC 33.1 g/dl (32.0-36.5); MEAN CORPUSCULAR VOLUME 98.4 fl (80.0-96.0); MONO # 0.5 10^3/uL (0.0-0.8); MONO % 12.3 % (2.0-8.0); NEUTROPHILS # 1.6 10^3/uL (1.5-8.5); NEUTROPHILS % 44.8 % (36.0-66.0); PLATELET COUNT, AUTOMATED 222 10^3/uL (150-450); RED BLOOD COUNT 4.51 10^6/uL (4.30-6.10); WHITE BLOOD COUNT 3.7 10^3/uL (4.0-10.0)
[2022-01-14 10:51] LABS: ALBUMIN 3.8 GM/DL (3.2-5.2); ALT/SGPT 44 U/L (12-78); BILIRUBIN,TOTAL 0.7 MG/DL (0.2-1.0); BLOOD UREA NITROGEN 19 MG/DL (7-18); CARBON DIOXIDE LEVEL 29 MEQ/L (21-32); CHLORIDE LEVEL 106 MEQ/L (98-107); CHOLESTEROL LEVEL 149 MG/DL (<200); CREATININE FOR GFR 0.84 MG/DL (0.70-1.30); FREE T4 0.92 NG/DL (0.76-1.46); GLOMERULAR FILTRATION RATE > 60.0 (>56); GLUCOSE, FASTING 103 MG/DL (70-100); HDL CHOLESTEROL 47 MG/DL (>40); LDL CHOLESTEROL 81 MG/DL (<100); MAGNESIUM LEVEL 2.2 MG/DL (1.8-2.4); NON-HDL-C 102 MG/DL; POTASSIUM SERUM 4.7 MEQ/L (3.5-5.1); SODIUM LEVEL 139 MEQ/L (136-145); TOTAL PROTEIN 7.3 GM/DL (6.4-8.2); TRIGLYCERIDES LEVEL 107 MG/DL (<150)
[2022-01-14 11:00] LABS: APPEARANCE, URINE CLEAR (CLEAR); BACTERIA, URINE AUTO NEGATIVE (NEGATIVE); BILIRUBIN, URINE AUTO NEGATIVE (NEGATIVE); BLOOD, URINE BLOOD NEGATIVE (NEGATIVE); COLOR, URINE YELLOW (YELLOW); GLUCOSE, URINE (UA) AUTO NEGATIVE (NEGATIVE); KETONE, URINE AUTO NEGATIVE (NEGATIVE); LEUKOCYTE ESTERASE, URINE AUTO NEGATIVE (NEGATIVE); MUCUS, URINE SMALL (NEGATIVE); NITRITE, URINE AUTO NEGATIVE (NEGATIVE); PROTEIN, URINE AUTO NEGATIVE (NEGATIVE); RBC, URINE AUTO 1 /HPF (0-3); SPECIFIC GRAVITY URINE AUTO 1.021 (1.002-1.035); SQUAMOUS EPITHELIAL CELL UR AU 0 /HPF (0-6); UROBILINOGEN, URINE AUTO 0.2 mg/dL (0.0-2.0); WBC, URINE AUTO 0 /HPF (0-3)
== END ==
LOC: M WUC 08:30
PROVIDERS: ATTEND Family Medicine
DX: Z01.818 Encounter for other preprocedural examination (principal); E78.5 Hyperlipidemia, unspecified; G43.009 Migraine without aura, not intractable, without status migrainosus; G47.33 Obstructive sleep apnea (adult) (pediatric)

== ENCOUNTER → 2022-05-20 | Outpatient (CLI) | payer BC | LOC: M WUC 10:47 | PROVIDERS: ATTEND Urology | DX: C61 Malignant neoplasm of prostate (principal) ==

== ENCOUNTER → 2022-09-13 | Outpatient (CLI) | payer BC | LOC: M WUC 10:11 | PROVIDERS: ATTEND Family Medicine | DX: M13.0 Polyarthritis, unspecified (principal) ==

== ENCOUNTER → 2022-12-27 | Outpatient (REF) | payer BC | LOC: M LABWUC 16:30 | PROVIDERS: ATTEND Urology | DX: C61 Malignant neoplasm of prostate (principal) ==

== ENCOUNTER → 2024-04-10 | Outpatient (CLI) | payer BC ==
[~2024-04-10] MED LIST changes: +GABA-1172 PO; -GABA-282 PO
== END ==
LOC: M WUC 10:04
PROVIDERS: ATTEND Nurse Practitioner Family
DX: C61 Malignant neoplasm of prostate (principal)

== ENCOUNTER → 2024-05-23 | Outpatient (CLI) | payer BC ==
[2024-05-23 12:17] LABS: BASO % 0.6 % (0.0-1.0); EOS # 0.2 10^3/uL (0.0-0.5); EOS % 3.1 % (0.0-3.0); HEMATOCRIT 46.6 % (42.0-52.0); HEMOGLOBIN 15.7 g/dl (13.5-17.5); LYMPH # 2.5 10^3/uL (1.5-5.0); LYMPH % 51.5 % (24.0-44.0); MEAN CORPUSCULAR HGB CONC 33.7 g/dl (32.0-36.5); MEAN CORPUSCULAR VOLUME 97.9 fl (80.0-96.0); MONO # 0.6 10^3/uL (0.0-0.8); MONO % 12.5 % (2.0-8.0); NEUTROPHILS # 1.6 10^3/uL (1.5-8.5); NEUTROPHILS % 32.1 % (36.0-66.0); PLATELET COUNT, AUTOMATED 222 10^3/uL (150-450); RED BLOOD COUNT 4.76 10^6/uL (4.30-6.10); WHITE BLOOD COUNT 4.9 10^3/uL (4.0-10.0)
[2024-05-23 12:22] LABS: APPEARANCE, URINE CLEAR (CLEAR); BACTERIA, URINE AUTO NEGATIVE (NEGATIVE); BILIRUBIN, URINE AUTO NEGATIVE (NEGATIVE); BLOOD, URINE BLOOD NEGATIVE (NEGATIVE); COLOR, URINE YELLOW (YELLOW); GLUCOSE, URINE (UA) AUTO NEGATIVE (NEGATIVE); KETONE, URINE AUTO NEGATIVE (NEGATIVE); LEUKOCYTE ESTERASE, URINE AUTO NEGATIVE (NEGATIVE); MUCUS, URINE SMALL (NEGATIVE); NITRITE, URINE AUTO NEGATIVE (NEGATIVE); PROTEIN, URINE AUTO NEGATIVE (NEGATIVE); RBC, URINE AUTO 0 /HPF (0-3); SPECIFIC GRAVITY URINE AUTO 1.023 (1.002-1.035); SQUAMOUS EPITHELIAL CELL UR AU 0 /HPF (0-6); UROBILINOGEN, URINE AUTO 0.2 mg/dL (0.0-2.0); WBC, URINE AUTO 0 /HPF (0-3)
[2024-05-23 12:50] LABS: ALBUMIN 3.9 G/DL (3.2-5.2); ALKALINE PHOSPHATASE 69 U/L (40-129); ALT/SGPT 50 U/L (7.0-40); AST/SGOT 27 U/L (<34); BILIRUBIN,TOTAL 0.5 MG/DL (0.3-1.2); BLOOD UREA NITROGEN 18 MG/DL (9-23); CALCIUM LEVEL 9.8 MG/DL (8.3-10.6); CARBON DIOXIDE LEVEL 28 MMOL/L (20-31); CHLORIDE LEVEL 106 MMOL/L (98-107); CHOLESTEROL LEVEL 142 MG/DL (<200); CREATININE FOR GFR 0.83 MG/DL (0.70-1.30); GLOMERULAR FILTRATION RATE > 60.0 (>49); GLUCOSE, FASTING 114 MG/DL (74-106); HDL CHOLESTEROL 52.4 MG/DL (>40); LDL CHOLESTEROL 64.6 MG/DL (<100); NON-HDL-C 89.6 MG/DL; POTASSIUM SERUM 4.7 MMOL/L (3.5-5.1); SODIUM LEVEL 142 MMOL/L (136-145); TOTAL PROTEIN 7.3 G/DL (5.7-8.2); TRIGLYCERIDES LEVEL 125 MG/DL (<150)
[2024-05-23 12:51] LABS: TOTAL 25(OH) VITAMIN D 24.9 NG/ML (20.0-100.0)
[2024-05-23 12:52] LABS: FREE T4 0.98 NG/DL (0.89-1.76)
[2024-05-23 13:04] LABS: URIC ACID 5.4 MG/DL (3.7-9.2)
[2024-05-23 13:36] LABS: HEMOGLOBIN A1c 5.9 % (4.0-6.0)
== END ==
LOC: M WUC 08:11
PROVIDERS: ATTEND Family Medicine
DX: E78.5 Hyperlipidemia, unspecified (principal); G43.009 Migraine without aura, not intractable, without status migrainosus; M13.0 Polyarthritis, unspecified

== ENCOUNTER → 2025-04-15 | Outpatient (CLI) | payer BC ==
[~2025-04-15] MED LIST changes: -PRAV20TA2 PO; +PRAV20TA78 PO
== END ==
LOC: M WUC 14:45
PROVIDERS: ATTEND Nurse Practitioner Family
DX: C61 Malignant neoplasm of prostate (principal)

== ENCOUNTER 2025-04-29 10:02 | Day surgery (SDC) | payer BC ==
[~2025-04-29] VITALS: Ht 182.9 cm; Wt 113.9 kg
[~2025-04-29 10:02] MED LIST changes: +LIDOCAINE 2% 100 MG/5 ML SDV (FOR ANES.) As Ordered ONE
[2025-04-29 12:10] VITALS: BP 119/69; O2SAT 97
== END 2025-04-29 12:11 | disposition home or self-care (01) ==
LOC: M OPP 10:02
PROVIDERS: ATTEND Internal Medicine Gastroenterology
DX: Z12.11 Encounter for screening for malignant neoplasm of colon (principal); K57.30 Diverticulosis of large intestine without perforation or abscess without bleeding; K64.8 Other hemorrhoids; Z86.0100 Personal history of colon polyps, unspecified; Z80.0 Family history of malignant neoplasm of digestive organs; G47.30 Sleep apnea, unspecified; Z79.01 Long term (current) use of anticoagulants; Z79.899 Other long term (current) drug therapy

== ENCOUNTER → 2025-05-22 | Outpatient (CLI) | payer BC ==
[~2025-05-22] MED LIST changes: -LIDOCAINE 2% 100 MG/5 ML SDV (FOR ANES.) As Ordered ONE
[2025-05-22 12:21] LABS: BASO # 0.0 10^3/uL (0.0-0.2); BASO % 0.8 % (0.0-1.0); EOS # 0.1 10^3/uL (0.0-0.5); EOS % 2.2 % (0.0-3.0); LYMPH # 1.8 10^3/uL (1.5-5.0); LYMPH % 47.7 % (24.0-44.0); MONO # 0.4 10^3/uL (0.0-0.8); MONO % 11.9 % (2.0-8.0); NEUTROPHILS # 1.4 10^3/uL (1.5-8.5); NEUTROPHILS % 37.4 % (36.0-66.0); PLATELET COUNT, AUTOMATED 216 10^3/uL (150-450)
[2025-05-22 12:26] LABS: AMORPHOUS SEDIMENT MODERATE (NEGATIVE); APPEARANCE, URINE TURBID (CLEAR); BACTERIA, URINE AUTO NEGATIVE (NEGATIVE); BILIRUBIN, URINE AUTO NEGATIVE (NEGATIVE); BLOOD, URINE BLOOD NEGATIVE (NEGATIVE); GLUCOSE, URINE (UA) AUTO NEGATIVE (NEGATIVE); KETONE, URINE AUTO NEGATIVE (NEGATIVE); LEUKOCYTE ESTERASE, URINE AUTO NEGATIVE (NEGATIVE); MUCUS, URINE MODERATE (NEGATIVE); NITRITE, URINE AUTO NEGATIVE (NEGATIVE); PROTEIN, URINE AUTO NEGATIVE (NEGATIVE); RBC, URINE AUTO 0 /HPF (0-3); SPECIFIC GRAVITY URINE AUTO 1.027 (1.002-1.035); SQUAMOUS EPITHELIAL CELL UR AU 0 /HPF (0-6); UROBILINOGEN, URINE AUTO 0.2 mg/dL (0.0-2.0); WBC, URINE AUTO 0 /HPF (0-3)
[2025-05-22 12:28] LABS: ALT/SGPT 25 U/L (7.0-40); AST/SGOT 21 U/L (<34); CALCIUM LEVEL 9.0 MG/DL (8.3-10.6); CARBON DIOXIDE LEVEL 30 MMOL/L (20-31); CHLORIDE LEVEL 102 MMOL/L (98-107); CHOLESTEROL LEVEL 124 MG/DL (<200); CHOLESTEROL RISK RATIO 2.40 (<5); CREATININE FOR GFR 0.91 MG/DL (0.70-1.30); GLOMERULAR FILTRATION RATE > 90.0 (>49); LDL CHOLESTEROL 62.4 MG/DL (<100); NON-HDL-C 72.4 MG/DL; POTASSIUM SERUM 4.2 MMOL/L (3.5-5.1); SODIUM LEVEL 138 MMOL/L (136-145); TRIGLYCERIDES LEVEL 50 MG/DL (<150)
[2025-05-22 12:29] LABS: TOTAL 25(OH) VITAMIN D 40.1 NG/ML (20.0-100.0)
[2025-05-22 12:30] LABS: FREE T4 1.31 NG/DL (0.89-1.76)
[2025-05-22 12:42] LABS: ESTIMATED AVERAGE GLUCOSE 114.0 MG/DL (60-110)
[2025-05-24 11:48] LABS: PSA % FREE UNABLE TO CALCULATE % (calc) (>25); PSA FREE < 0.1 ng/mL; PSA TOTAL < 0.1 ng/mL (< OR = 4.0)
== END ==
LOC: M WUC 08:04
PROVIDERS: ATTEND Family Medicine
DX: C61 Malignant neoplasm of prostate (principal)